=== PATIENT | female | born 1970 | race Caucasian/White ===

== ENCOUNTER 2019-08-07 15:29 | Outpatient (CLI) | payer OTHER, SELFPAY ==
--- NOTE | ~2019-08-07 | MM_ITS ---
EXAMINATION: MM screening chasity BI w hamzah HISTORY: Screening mammogram TECHNIQUE: Craniocaudal and mediolateral oblique 3-D tomosynthesis images were obtained and synthetic 2-D images were generated. CAD analysis was submitted and interpreted. COMPARISON: No prior mammogram is available for comparison at this institution. BREAST PARENCHYMAL COMPOSITION: The breasts are almost entirely fatty. FINDINGS: There is no evidence of suspicious mass, calcification, or architectural distortion to sugg est malignancy in either breast. There has been no suspicious interval change. IMPRESSION: 1. No mammographic evidence of malignancy. 2. Recommend routine screening mammography in one year. BI-RADS Category 1: Negative Reviewed, dictated and finalized at location A.
== END 2019-08-07 15:30 | disposition home or self-care (01) ==
LOC: ANHIMG 15:30
PROVIDERS: PCP Family Medicine; Visit Provider Family Medicine
DX: Z12.31 Encounter for screening mammogram for malignant neoplasm of breast (principal)
CPT/HCPCS: 77063; 77067

== ENCOUNTER 2020-04-08 07:58 | Emergency (ER) | payer OTHER, SELFPAY ==
--- NOTE | ~2020-04-08 | CT_ITS ---
EXAMINATION: CT lumbar spine wo con DATE: 04/08/2020 08:33 INDICATION: Low back pain with weakness to the lower extremities. TECHNIQUE: Computed tomography (CT) of the lumbar spine was performed without intravenous contrast. T he dose-length product was 1079.04 mGy-cm. Automated exposure control and iterative reconstruction te chnique were employed. COMPARISON: None FINDINGS: There is disc narrowing at L4-5 and L5-S1. There is grade 1 spondylolisthesis at L5-S1 seco ndary to bilateral spondylolysis. There is mild annular disc bulging at L4-5 and L5-S1. There is mild facet degenerative changes at these levels. No acute fracture or traumatic malalignment. There is mi ld central canal and bilateral neural foraminal narrowing at L4-5. No significant spinal stenosis at the remainder of the levels. There is fatty infiltration of the liver. Visualized abdominal contents are otherwise unremarkable. IMPRESSION: 1. Mild-moderate lumbar spondylosis with grade 1 spondylolisthesis at L5-S1 secondary to spondylolysi s. Reviewed, dictated and finalized at location A. RMATICS NURSE IMPRESSION: 1. Mild-moderate lumbar spondylosis with grade 1 spondylolisthesis at L5-S1 sec ondary to spondylolysis.
--- NOTE | 2020-04-08 08:02 | ED.BACK ---
HPI - Back Pain/Injury General Chief Complaint: Back Pain/Injury Stated Complaint: back pain Time Seen by Provider: 04/08/20 08:02 History of Present Illness HPI Narrative: 49 yo female w/ h/o herniated disc and chronic back pain presents to the ED for low back pain. She reports that she has had back pain since she was a teenager. About 10 years ago she had an MRI showing a herniated disc in the lumbar spine. She did not have any follow-up or treatment. She has had worsening of this back pain over the past few weeks. It is worse with prolonged standing. It radiates into the bilateral hips and thighs. She report associated leg weakness, although no difficulty with walking or perfoming normal activities. No bowel or bladder symptoms. No fever. Related Data Allergies Allergy/AdvReac Type Severity Reaction Status Date / Time Penicillins Allergy Unknown Unknown Verified 04/08/20 07:59 Sulfa (Sulfonamide Allergy Unknown Unknown Verified 04/08/20 07:59 Antibiotics) Review of Systems Review of Systems: All systems reviewed & are unremarkable except as noted in HPI and below Constitutional: Constitutional: Denies fever(s) and Reports weakness Cardiovascular: Cardiovascular: Denies chest pain Respiratory: Respiratory: Denies dyspnea Gastrointestinal: Gastrointestinal: Denies abdominal pain and Denies nausea Genitourinary: Genitourinary: Denies hematuria, Denies nocturia and Denies dysuria Neurologic: Denies dizziness, Denies numbness and Reports weakness PMFSH Past Medical History Medical History Body mass index [BMI] 29.0-29.9, adult (02/25/18) Closed displaced fracture of greater tuberosity of left humerus Incomplete tear of left rotator cuff Family History Family History Other Diabetes mellitus Family history of malignant neoplasm Hypertension Social History Social History Smoking status: Never smoker Alcohol intake: current Exam Const: General: healthy appearing, no acute distress and alert Nutritional Appearance: obese Orientation/consciousness: patient oriented x3 HENMT: Head: normal to inspection Neck: Neck: normal visual inspection and no lymphadenopathy Chest: Chest palpation & inspection: no tenderness Resp: Effort & Inspection: normal respiratory effort Auscultation: clear to auscultation bilaterally, no rales, no rhonchi and no wheezes Cardio: Jugular venous distension: no JVD Rate: regular rate Rhythm: regular rhythm Heart sounds: no murmurs GI: Inspection: non-distended GI Palp: Yes Soft to palpation and No Tenderness to palpation present (GI) Back/Spine/Pelvis: Thoracic/Lumbar Spine: thoracic and lumbar spine normal to inspection and paraspinal muscle tenderness bilaterally in the lower thoracic, in the upper lumbar, in the mid lumbar and in the lower lumbar Pelvis: buttock tenderness bilaterally Skin: General skin exam: normal color Neuro: General: patient oriented x3, moves all extremities, no focal motor deficits and CN's II-XI intact bilaterally Speech: normal speech Gait exam (Neuro): Normal gait present Extrem: General: normal to inspection and no edema Psych: Appearance: well kempt Affect: normal affect Course Vital Signs Vital signs: Vital Signs Temperature 36.9 C 04/08/20 08:06 Pulse Rate 99 04/08/20 08:06 Respiratory Rate 14 04/08/20 08:06 Blood Pressure 159/88 H 04/08/20 08:06 Pulse Oximetry 100 04/08/20 08:06 Temperature 36.9 C 04/08/20 08:06 Pulse Rate 70 04/08/20 10:09 Respiratory Rate 12 04/08/20 10:09 Blood Pressure 143/70 H 04/08/20 10:09 Pulse Oximetry 99 04/08/20 10:09 MDM - Back Pain/Injury Differential Diagnosis Differential diagnosis: Likely lumbar radiculopathy, sciatica and strain of lumbar region Medical Records Attestation: Ana hernandez
[2020-04-08 08:06] VITALS: BP 159/88; PULSE 99; RESP 14; TEMP 36.9; O2SAT 100
[2020-04-08] MEDS: KETOROLAC (*BKC) 60 MG/2 ML VIAL IM (08:22)
[2020-04-08] MEDS: diazePAM INJ (*CRX) 10 MG/2 ML SYRINGE 5 MG IM (08:22)
[2020-04-08 10:09] VITALS: BP 143/70; PULSE 70; RESP 12; O2SAT 99
== END 2020-04-08 10:10 | disposition home or self-care (01) ==
PROVIDERS: Emergency Provider Emergency Medicine; PCP Family Medicine
DX: M54.5 Low back pain (principal); M47.812 Spondylosis without myelopathy or radiculopathy, cervical region; M43.06 Spondylolysis, lumbar region
CPT/HCPCS: 72131; 96372; 99284; J1100; J1885; J3360

== ENCOUNTER → 2020-06-24 07:47 | Outpatient (CLI) | payer OTHER, SELFPAY ==
--- NOTE | ~2020-06-24 | MR_ITS ---
EXAMINATION: MR lumbar spine wo [facility] EXAM DATE: 06/24/2020 08:26 INDICATION: Spondylosis with radiculopathy, low back pain, spasms, bilateral leg and hip pain. Right leg is worse. TECHNIQUE: Multi-sequential, multiplanar MR images of the lumbar spine were obtained without contrast . Sagittal T1, T2, T2 fat saturation images. Axial T2 weighted images. Correlation is made to [facility] spine 04/08/2020. FINDINGS: There is chronic bilateral L5 spondylolysis with 6 mm anterolisthesis and moderate to sever e loss of this disc height. There is mild to moderate disc disease at L4-5 with 2 mm retrolisthesis. The vertebral bodies are otherwise aligned. Mild disc disease at L1-2 and lower thoracic levels. The conus medullaris terminates at the T12-L1 level and has normal signal intensity and morphology. Ther e are no suspicious marrow signal abnormalities. Level by level evaluation: T12-L1: There is a mild diffuse disc bulge. Facet arthropathy: None. Neural foraminal stenosis: No stenosis. Central canal stenosis: No stenosis. L1-L2: There is a mild diffuse disc bulge. Facet arthropathy: Mild. Neural foraminal stenosis: No stenosis. Central canal stenosis: No stenosis. L2-L3: Disc does not extend beyond the endplate margin. Facet arthropathy: Mild. Neural foraminal stenosis: No stenosis. Central canal stenosis: No stenosis. L3-L4: Disc does not extend beyond the endplate margin. Facet arthropathy: Mild. Neural foraminal stenosis: No stenosis. Central canal stenosis: No stenosis. L4-L5: There is a mild diffuse disc bulge. Facet arthropathy: Mild. Neural foraminal stenosis: Mild to moderate right, mild left. Central canal stenosis: No stenosis. L5-S1: There is a mild to moderate diffuse disc bulge. Facet arthropathy: Mild. Neural foraminal stenosis: Moderate left, mild to moderate right. Central canal stenosis: No stenosis. No appreciable interval change accounting for differences in technique. IMPRESSION: 1. Chronic L5 bilateral spondylolysis, 6 mm anterolisthesis L5 on S1. 2. L5-S1 moderate to severe disc disease and moderate left neural foraminal stenosis. 3. Less spondylosis other levels. Reviewed, dictated and finalized at location A. IMPRESSION: 1. Chronic L5 bilateral spondylolysis, 6 mm anterolisthesis L5 on S1. 2. L5-S1 moderate to severe disc disease and moderate left neural foraminal st enosis. 3. Less spondylosis other levels.
== END ==
PROVIDERS: PCP Family Medicine; Visit Provider Nurse Practitioner Family
DX: M47.26 Other spondylosis with radiculopathy, lumbar region (principal); M51.37 Other intervertebral disc degeneration, lumbosacral region
CPT/HCPCS: 72148

== ENCOUNTER → 2020-11-12 03:19 | Outpatient (CLI) | payer OTHER, SELFPAY ==
[2020-11-13 03:41] LABS: SARS-CoV-2 RNA PCR Negative
== END ==
PROVIDERS: PCP Family Medicine; Visit Provider Family Medicine
DX: R68.89 Other general symptoms and signs (principal); Z20.822 Contact with and (suspected) exposure to COVID-19
CPT/HCPCS: C9803; U0003; U0005

== ENCOUNTER 2021-04-28 08:44 | Emergency (ER) | payer OTHER, SELFPAY ==
[2021-04-28 08:50] VITALS: BP 138/67; PULSE 84; RESP 18; TEMP 36.8; O2SAT 100
--- NOTE | 2021-04-28 08:52 | ED.URI ---
HPI - URI/Sore Throat General Chief Complaint: Upper Respiratory Infection Stated Complaint: fatigue weak cough sore throat Time Seen by Provider: 04/28/21 08:52 Source: patient and RN notes reviewed History of Present Illness HPI Narrative: Patient is a 50-year-old female who presents the urgent care with complaints of fatigue, cough, sore throat and right ear pain. Patient states that her symptoms started on Sunday after she had an exposure to Covid at work last week. Patient states that she tested negative with an at home rapid test on Sunday. States that her is also now symptomatic. Patient has not been vaccinated. States that she has been taking Sudafed, DayQuil and NyQuil. Denies of any recent fevers. Denies any nausea or vomiting. Denies of shortness of breath or chest pain. No other acute complaints. No acute distress noted. Patient aware of the plan of care. Some parts of this dictation were generated by voice recognition software and may contain typographical and/or grammatical inaccuracies. Related Data Home Medications Medication Instructions Recorded Confirmed No Home Medications 04/28/21 04/28/21 Allergies Allergy/AdvReac Type Severity Reaction Status Date / Time Penicillins Allergy Unknown Unknown Verified 04/28/21 09:01 Sulfa (Sulfonamide Allergy Unknown Unknown Verified 04/28/21 09:01 Antibiotics) Review of Systems Review of Systems: CONSTITUTIONAL: Denies fever, chills, or sweats. Reports a fatigue EYES: Denies visual changes, redness, or discharge. ENT: Reports of congestion, sore throat, right otalgia CARDIOVASCULAR: Denies chest pain, palpitations, or edema. RESPIRATORY: Denies cough or dyspnea. GASTROINTESTINAL: Denies abdominal pain, nausea, vomiting, or diarrhea. GENITOURINARY: Denies dysuria or hematuria. SKIN: Denies rash or itching. MUSCULOSKELETAL: Denies back pain, joint pain. reports of body aches NEUROLOGIC: Denies headache, numbness, or weakness. All other systems reviewed are negative, except as documented in HPI. [facility] Past Medical History Medical History Body mass index [BMI] 29.0-29.9, adult (02/25/18) Closed displaced fracture of greater tuberosity of left humerus Incomplete tear of left rotator cuff Family History Family History Other Diabetes mellitus Family history of malignant neoplasm Hypertension Social History Social History Smoking status: Never smoker Alcohol intake: current Comments At the time of my signature, I reviewed and agree with the nursing past medical, surgical, social, and family history. There is no relevant family history pertinent to the patient complaint. Exam Narrative: GENERAL: This is a well-nourished, well-developed patient. Appears fatigued HEAD: normocephalic, atraumatic. EYES: PERRL. Sclera clear/white. Vision is grossly intact. EARS: External ears normal, auditory canals clear and without drainage, mild to moderate fluid noted behind bilateral TMs without otitis. TMs normal without perforation. Hearing grossly intact. NOSE: External nose normal with no obvious nasal discharge. Bilateral erythemic nares with clear yellow rhinorrhea THROAT: Mucous membranes moist. Moderate erythema noted posterior pharynx with moderate postnasal drainage NECK: Neck supple CARDIOVASCULAR: Regular rate and rhythm without murmurs, gallops, or rubs. RESPIRATORY: Clear to auscultation. Breath sounds equal bilaterally. No wheezes, rales, or rhonchi. SKIN: warm, intact with no suspicious lesions or rash, good texture and turgor. NEURO: awake, alert, and oriented to person, place and time. There were no obvious focal neurologic abnormalities. EXTREMITIES: No clubbing, cyanosis, or edema. Course Course Level of Care: Express Care Visit Vital Signs Vital signs: Lisa
== END 2021-04-28 09:20 | disposition home or self-care (01) ==
PROVIDERS: Emergency Provider Nurse Practitioner Family
DX: Z20.822 Contact with and (suspected) exposure to COVID-19 (principal)
CPT/HCPCS: 99211; G0463

== ENCOUNTER 2021-07-04 08:27 | Emergency (ER) | payer OTHER, SELFPAY ==
[2021-07-04 08:40] VITALS: BP 122/67; PULSE 87; RESP 16; TEMP 37.2; O2SAT 99
--- NOTE | 2021-07-04 09:13 | ED.URI ---
HPI - URI/Sore Throat General Chief Complaint: Upper Respiratory Infection Stated Complaint: Fever/Cough Time Seen by Provider: 07/04/21 09:14 Source: patient and RN notes reviewed Mode of arrival: ambulatory Limitations: no limitations History of Present Illness HPI Narrative: 51-year-old female presents with concern for 2-week history of sinus pain, pressure, nasal drainage. She reports fever, chills, sweats. She reports she had a cough that has been improving, however still present. Reports she used an inhaler that helped her cough. She denies any current shortness of breath. She reports she has been taking [id number] medications with little relief. MD elicited complaint: nasal congestion and sinus pain Related Data Allergies Allergy/AdvReac Type Severity Reaction Status Date / Time Penicillins Allergy Unknown Unknown Verified 07/04/21 09:05 Sulfa (Sulfonamide Allergy Unknown Unknown Verified 07/04/21 09:05 Antibiotics) Review of Systems Review of Systems: CONSTITUTIONAL: Reports malaise, chills, sweats, fever. EYES: Denies visual changes, redness, or discharge. ENT: Reports rhinorrhea, congestion, sinus pain. Denies otalgia and sore throat. CARDIOVASCULAR: Denies chest pain, palpitations, or edema. RESPIRATORY: Reports cough. Denies dyspnea. GASTROINTESTINAL: Denies abdominal pain, nausea, vomiting, diarrhea SKIN: Denies rash or itching. MUSCULOSKELETAL: Denies myalgia. NEUROLOGIC: Reports headache. All systems reviewed & are unremarkable except as noted in HPI and below PMFSH Past Medical History Medical History Body mass index [BMI] 29.0-29.9, adult (02/25/18) Closed displaced fracture of greater tuberosity of left humerus Incomplete tear of left rotator cuff Family History Family History Other Diabetes mellitus Family history of malignant neoplasm Hypertension Social History Social History Smoking status: Never smoker Alcohol intake: current Comments At time of signature, agree with nursing past medical, surgical, social and family history. There is no relevant family history pertinent to the presenting complaint Exam Narrative: GENERAL: Well-appearing, well-nourished, and in no acute distress. HEAD: Normocephalic EYES: PERRLA, conjunctivae clear ENT: Nares clear, turbinates edematous and erythematous, sinus tenderness. Mucous membranes moist. TM pearly barbosa with dull light reflex bilaterally; no tragal tenderness. Oropharynx not erythematous without lesions. Tonsils not enlarged and without exudate, no drooling, no hoarseness, no trismus, uvula midline. NECK: Supple. No lymphadenopathy CHEST: Clear to auscultation, breath sounds equal. No wheezing, rhonchi, rales, or stridor. No respiratory distress, speaks in full sentences. HEART: Regular rate and rhythm. No murmur heard. SKIN: Warm, dry, no rash. NEURO: Alert and oriented x3. PSYCH: Normal mood and affect Course Course Emergency Course: Patient is aware of diagnosis, understands and agrees to treatment plan. Anticipatory guidance given. Patient agrees to follow-up as directed and is aware of reasons to seek care at the emergency department. Portions of this record may have been created with voice recognition software Level of Care: Express Care Visit Vital Signs Vital signs: Vital Signs Temperature 98.9 F 07/04/21 08:40 Pulse Rate 87 07/04/21 08:40 Respiratory Rate 16 07/04/21 08:40 Blood Pressure 122/67 07/04/21 08:40 Pulse Oximetry 99 07/04/21 08:40 Temperature 98.9 F 07/04/21 08:40 Pulse Rate 87 07/04/21 08:40 Respiratory Rate 16 07/04/21 08:40 Blood Pressure 122/67 07/04/21 08:40 Pulse Oximetry 99 07/04/21 08:40 Reviewed. MDM - URI/Sore Throat MDM Narrative Medical decision making narrative: Differential diagnos
== END 2021-07-04 09:28 | disposition home or self-care (01) ==
PROVIDERS: Emergency Provider Nurse Practitioner
DX: J01.90 Acute sinusitis, unspecified (principal); Z20.822 Contact with and (suspected) exposure to COVID-19
CPT/HCPCS: 87426; 87804; 99213; C9803; G0463

== ENCOUNTER → 2021-09-09 13:51 | Outpatient (CLI) | payer OTHER, SELFPAY ==
--- NOTE | ~2021-09-09 | CT_ITS ---
EXAMINATION: CT sinus wo con DATE: 09/09/2021 14:06 INDICATION: Atypical facial pain TECHNIQUE: Computed tomography (CT) of the paranasal sinuses was performed without intravenous contra st. The dose-length product was 274.70 mGy-cm. Automated exposure control and iterative reconstructio n technique were employed. COMPARISON: No prior studies for comparison. FINDINGS: There is near complete opacification of the left maxillary sinus and to a lesser degree muc osal thickening of the left ethmoid and frontal sinuses. There is occlusion of the left ostiomeatal u nit. There is rightward nasal septal deviation. IMPRESSION: 1. Moderate sinusitis, most severe in the left maxillary and ethmoid sinuses. Reviewed, dictated and finalized at location B.
== END ==
PROVIDERS: PCP Internal Medicine; Visit Provider Nurse Practitioner
DX: G50.1 Atypical facial pain (principal); J32.9 Chronic sinusitis, unspecified
CPT/HCPCS: 70486

== ENCOUNTER 2021-12-02 00:15 | Day surgery (SDC) | payer OTHER, SELFPAY ==
[2021-11-24 12:32] VITALS: BMI 32.7
[2021-12-02 07:19] VITALS: BP 129/80; PULSE 94; RESP 18; TEMP 36.1; O2SAT 99; BMI 33.1
[2021-12-02] MEDS: LACTATED RINGERS 1,000 ML 150 ML IV CONT (07:37)
--- NOTE | 2021-12-02 07:48 | P.PNAN_ITS ---
Anes - Initial Pre Proc Eval Procedure: Operation Date: 12/02/21 08:30 Proposed Procedures p Screening Colonoscopy - J Luis Alejandro MD Date/Time: 12/02/21 07:48 Surgeon: J Luis Alejandro MD Pre Op Diagnosis: neoplasm screening Patient Data Age: 51 Gender: F Height: 1.63 m Weight: 87.6 kg Last Vital Signs Temp 97 F L 12/02/21 07:19 Pulse 94 12/02/21 07:19 Resp 18 12/02/21 07:19 BP 129/80 12/02/21 07:19 Pulse Ox 99 12/02/21 07:19 O2 Del Method Room Air 12/02/21 07:19 Allergies Allergy/AdvReac Type Severity Reaction Status Date / Time Penicillins Allergy Unknown Unknown Verified 12/02/21 07:18 Sulfa (Sulfonamide Allergy Unknown Unknown Verified 12/02/21 07:18 Antibiotics) Home Medications Medication Instructions Recorded Confirmed Type multivitamin with minerals 1 tablet PO DAILY 11/24/21 12/01/21 History Patient hx anesthesia problems: none Family hx anesthesia problems: none Results Review: All pre-operative results and documents have been reviewed as part of the pre- operative evaluation. [facility] Past Medical History Medical History Body mass index [BMI] 29.0-29.9, adult (02/25/18) Closed displaced fracture of greater tuberosity of left humerus Incomplete tear of left rotator cuff Family History Family History Other Diabetes mellitus Family history of malignant neoplasm Hypertension Social History Social History (Updated 12/01/21 @ 10:51 by CRISTHIAN Nunes) Smoking status: Current every day smoker Alcohol intake: current Drinks per week: 14 Alcohol use details: 2 beers daily Substance use: never Substance use type: does not use Living arrangements: with family Spiritual care concerns: No Anes - Eval Final PreProcedure Day of Procedure 12/02/21 07:48 Patient weight: obese Heart: regular rate and rhythm Lungs: clear to auscultation Airway: Mallampati scale class II Neurological: alert and oriented Last oral intake: >/= 8 hours ASA classification: II Emergent: no Anesthetic plan: proceed Anesthesia type and monitoring: general GIVS and standard monitoring Results Review: All pre-operative results and documents have been reviewed as part of the pre- operative evaluation. Informed Consent: The patient's anesthetic plan and its attendant risks and benefits were discussed with the patient/family/POA. Questions were solicited and answers provided to the satisfaction of the patient/family/POA.
--- NOTE | 2021-12-02 07:51 | PM.HPGS ---
History of Present Illness History of Present Illness Consent: Risks, benefits, and alternatives have been discussed and questions answered. Patient agrees to proceed with procedure. Chief complaint: neoplasm screening Narrative: Beatrice Raman is a 51 year old female here for first screening colonoscopy Review of Systems Constitutional: Constitutional: Denies headache(s) and Denies weakness Eyes: Eyes: Denies blurry vision ENT: Reports Normal hearing present, Denies headache(s) and Denies neck pain Cardiovascular: Cardiovascular: Denies chest pain and Denies dyspnea Respiratory: Respiratory: Denies dyspnea Gastrointestinal: Gastrointestinal: Reports no additional gastrointestinal complaints Genitourinary: Genitourinary: Denies dysuria Musculoskeletal: Musculoskeletal: Denies neck pain Integumentary/Breasts: Skin/Breast: Denies dry skin Neurologic: Reports Normal hearing present, Denies headache(s) and Denies weakness Psychiatric: Psychiatric: Denies anxiety Endocrine: Endocrine: Denies change in body appearance Hematologic/Lymphatic: Hematologic/Lymphatic: Denies easy bleeding Allergic/Immunologic: Allergic/Immunologic: Denies urticaria PMF Past Medical History Medical History (Updated 12/02/21 @ 07:52 by J Luis Alejandro MD) Body mass index [BMI] 29.0-29.9, adult (02/25/18) Closed displaced fracture of greater tuberosity of left humerus Colon cancer screening Incomplete tear of left rotator cuff Family History Family History Other Diabetes mellitus Family history of malignant neoplasm Hypertension Social History Social History (Updated 12/01/21 @ 10:51 by CRISTHIAN Nunes) Smoking status: Current every day smoker Alcohol intake: current Drinks per week: 14 Alcohol use details: 2 beers daily Substance use: never Substance use type: does not use Living arrangements: with family Spiritual care concerns: No Meds Home Medications and Allergies Home Medications Medication Instructions Recorded Confirmed Type multivitamin with minerals 1 tablet PO DAILY 11/24/21 12/01/21 History Allergies Allergy/AdvReac Type Severity Reaction Status Date / Time Penicillins Allergy Unknown Unknown Verified 12/02/21 07:18 Sulfa (Sulfonamide Allergy Unknown Unknown Verified 12/02/21 07:18 Antibiotics) Vital Signs Vital Signs - 24 hr 12/02/21 07:19 Temperature 97 F L Pulse Rate 94 Respiratory Rate 18 Blood Pressure 129/80 Pulse Oximetry 99 Oxygen Delivery Room Air Exam Const: General: comfortable and no acute distress HENMT: General nose exam: Normal nares present Eyes: General: appearance normal, both eyes and all related structures Neck: Neck: no JVD Resp: Auscultation: clear to auscultation bilaterally Cardio: Rate: regular rate Rhythm: regular rhythm GI: Inspection: non-distended GI Palp: Yes Soft to palpation Skin: General skin exam: normal color Neuro: General: gait normal Speech: normal speech Extrem: General: normal to inspection Psych: Mental Status: mental status grossly normal Assessment and Plan Assessment and plan (1) Colon cancer screening: Code(s): Z12.11 - Encounter for screening for malignant neoplasm of colon Status: Acute Assessment and Plan: colonoscopy
[2021-12-02 08:12] VITALS: BP 108/60; PULSE 88; RESP 16; O2SAT 97
[2021-12-02 08:22] VITALS: BP 95/65; PULSE 86; RESP 16; O2SAT 98
[2021-12-02 08:32] VITALS: BP 101/68; PULSE 86; RESP 17; O2SAT 98
== END 2021-12-02 08:41 | disposition home or self-care (01) ==
PROVIDERS: PCP Internal Medicine; Visit Provider Internal Medicine Gastroenterology
PROC: 0DJD8ZZ Inspection of Lower Intestinal Tract, Via Natural or Artificial Opening Endoscopic (ICD-10-PCS; CPT 45378; principal; 2021-12-02 08:30)
DX: Z12.11 Encounter for screening for malignant neoplasm of colon (principal); D12.3 Benign neoplasm of transverse colon; K57.30 Diverticulosis of large intestine without perforation or abscess without bleeding; K64.8 Other hemorrhoids; F17.210 Nicotine dependence, cigarettes, uncomplicated; E66.9 Obesity, unspecified; Z68.33 Body mass index [BMI] 33.0-33.9, adult
CPT/HCPCS: 45380; 88305; J2704; J7120

== ENCOUNTER 2021-12-12 09:59 | Emergency (ER) | payer OTHER, SELFPAY ==
--- NOTE | ~2021-12-12 | CT_ITS ---
EXAMINATION: CT brain wo con DATE: 12/12/2021 11:13 INDICATION: Seizure. TECHNIQUE: Computed tomography (CT) of the head was performed without intravenous contrast. The mA wa s adjusted according to patient size. Iterative reconstruction technique was employed. The dose-lengt h product was 605.33 mGy-cm. COMPARISON: None FINDINGS: There are scattered areas of low attenuation in the cerebral white matter, which is within normal limits for the patient's age. There is no intracranial hemorrhage, acute infarction, or abnor mal intracranial mass lesion. The ventricles are normal in size. The paranasal sinuses are clear. The orbits are normal. The mastoid air cells are normal. IMPRESSION: 1. Normal aging brain. Reviewed, dictated and finalized at location A. IMPRESSION: 1. Normal aging brain.
[2021-12-12 10:02] VITALS: BP 151/77; PULSE 98; RESP 15; TEMP 36.1; O2SAT 100
--- NOTE | 2021-12-12 10:26 | ED.SEIZURE ---
HPI - Seizure General Chief Complaint: Seizure Stated Complaint: possible seizure? Time Seen by Provider: 12/12/21 10:26 Source: patient Mode of arrival: ambulatory Limitations: no limitations History of Present Illness HPI Narrative: The patient is a 51-year-old female previously healthy female presenting for evaluation of potential seizure activity. Patient states that she was in between being asleep and being awake when she began to be thrashing in nature. She states that this point she may have been awake but is not entirely sure. Patient states that she felt that her face was moving and she was not in control no movements. She states that she felt that her mouth was foaming. Patient was awake and knew that she was at home. She denied body numbness or weakness. She denies urinary incontinence. No tongue biting or lacerations. No headache pain or vision changes. Patient is not able to estimate how long this occurred 4. She has no history of seizure has never been on seizure medications. She denies current symptoms. She denies focal weakness or numbness. She denies head trauma, loss of conscious, recent fall or injury. She denies recent illnesses. She denies any new medications. Related Data Home Medications Medication Instructions Recorded Confirmed multivitamin with minerals 1 tablet PO DAILY 11/24/21 12/01/21 Allergies Allergy/AdvReac Type Severity Reaction Status Date / Time Penicillins Allergy Unknown Unknown Verified 12/12/21 11:43 Sulfa (Sulfonamide Allergy Unknown Unknown Verified 12/12/21 11:43 Antibiotics) Review of Systems Review of Systems: CONSTITUTIONAL: Denies fever, chills, or sweats. EYES: Denies visual changes, redness, or discharge. ENT: Denies rhinorrhea, congestion, sore throat, or otalgia. CARDIOVASCULAR: Denies chest pain, palpitations, or edema. RESPIRATORY: Denies cough or dyspnea. GASTROINTESTINAL: Denies abdominal pain, nausea, vomiting, or diarrhea. GENITOURINARY: Denies dysuria or hematuria. SKIN: Denies rash or itching. MUSCULOSKELETAL: Denies back pain, joint pain, or myalgia. NEUROLOGIC: Denies headache, numbness, or weakness. PSYCHIATRIC: Patient reports mild anxiety and depression PMFSH Past Medical History Medical History Body mass index [BMI] 29.0-29.9, adult (02/25/18) Closed displaced fracture of greater tuberosity of left humerus Colon cancer screening Incomplete tear of left rotator cuff Family History Family History Other Diabetes mellitus Family history of malignant neoplasm Hypertension Social History Social History Smoking status: Current every day smoker Alcohol intake: current Drinks per week: 14 Alcohol use details: 2 beers daily Substance use: never Substance use type: does not use Spiritual care concerns: No Exam Narrative: GENERAL: Awake, alert, conversant HEAD: Normocephalic, atraumatic. EYES: PERRLA and EOMI. ENT: Nares clear, no rhinorrhea or epistaxis. Mucous membranes moist. NECK: Supple. CHEST: No respiratory distress, breathing even and non labored HEART: Regular rate, sinus rhythm ABDOMEN:Non distended, non tender EXTREMITIES: Normal range of motion. No edema. SKIN: Warm, dry, no rash. NEURO:No focal deficits. Alert and oriented x3. Finger to nose intact bilaterally. EOMs intact without nystagmus. No facial droop/asymmetry noted bilaterally. Grimace intact. Intact sensation in face. Hearing intact bilaterally. Shoulder shrug intact. Strength 5/5 bilateral upper extremities. Strength 5/5 bilateral lower extremities. Reflexes 2+ patellar. Heel to condon intact bilaterally. Ambulatory exam deferred. Course Vital Signs Vital signs: Vital Signs Temperature 36.1 C L 12/12/21 10:02 Pulse Rate 98 12/12/21 10:02 Respiratory Rate 15 12/12/21 10:02 Blo
--- NOTE | 2021-12-12 10:59 | ECG_ITS ---
Measurements Intervals [place] Rate: 74 P: 12 NV: 167 QRS: -17 QRSD: 85 T: 17 QT: 379 QTc: 421 Interpretive Statements SINUS RHYTHM DELAYED PRECORDIAL R/S TRANSITION BORDERLINE ECG NO PREVIOUS ECG AVAILABLE FOR COMPARISON Electronically Signed On 12-12-2021 12:41:39 CDT by Abiel Handley D.O.
[2021-12-12 12:16] VITALS: O2SAT 98
[2021-12-12 12:17] VITALS: PULSE 87
[2021-12-12 12:41] LABS: Appearance Urine Clear (Clear); Bilirubin Urine Negative (Negative); Blood Urine Negative (Negative); Color Urine Yellow (Yellow); Glucose Urine UA Negative (Negative); Ketones Urine Negative (Negative); Leukocyte Esterase Ur Negative LEU/UL (Negative); Nitrate Urine Negative (Negative); Protein Urine Negative (Negative); Specific Grav Ur 1.015 (1.001-1.035); Urobilinogen Urine 0.2 mg/dL (<2.0)
[2021-12-12 12:42] LABS: Basophils Absolute Auto 0.1 K/mm3 (0.0-0.1); Basophils Percent Auto 0.7 % (0.2-1.2); Eosinophils Absolute Auto 0.1 K/mm3 (0-0.3); Eosinophils Percent Auto 1.4 % (0-4.4); Hematocrit 44.4 % (37.0-47.0); Hemoglobin 14.9 g/dL (12.0-15.0); Immature Granulocyte Absolute 0.07 K/mm3 (0.00-0.031); Immature Granulocyte Percent A 0.7 % (0-0.5); Lymphocytes Absolute Auto 2.91 K/mm3 (0.9-3.2); Lymphocytes Percent Auto 29.9 % (18.3-44.2); Mean Corpuscular HGB Conc 33.6 g/dl (32-36); Mean Corpuscular Hemoglobin 32.7 pg (26-34); Mean Corpuscular Volume 97.4 fl (80-100); Mean Platelet Volume 10.6 fl (7.4-10.4); Monocytes Absolute Auto 0.6 K/mm3 (0.1-0.6); Monocytes Percent Auto 5.7 % (2.6-8.5); Neutrophils Percent Auto 61.6 % (45.5-73.1); Platelet Count Result 219 k/mm3 (150-375); Red Blood Count 4.56 M/mm3 (4.2-5.4); Red Cell Distribution Width 13.3 % (11.5-14.5); White Blood Count 9.7 K/mm3 (4.5-10.0)
[2021-12-12 12:51] LABS: Anion Gap 13 mmol/L (8-16); Blood Urea Nitrogen 11 mg/dL (7-17); Calcium 8.7 mg/dL (8.4-10.2); Carbon Dioxide 26 mmol/L (22-30); Chloride 104 mmol/L (98-107); Estimated CRCL calculation 77 ml/min; Estimated Glomerular Filt Rate > 60; Glucose 120 mg/dL (65-110); Potassium 4.1 mmol/L (3.4-5.0); Sodium 143 mmol/L (137-145)
[2021-12-12 12:57] LABS: Add Urine Microscopic? NO
[2021-12-12 13:15] LABS: Procalcitonin 0.1 ng/mL
[2021-12-12 14:06] VITALS: BP 149/84; PULSE 77; RESP 18; O2SAT 99
== END 2021-12-12 14:07 | disposition home or self-care (01) ==
PROVIDERS: Emergency Provider Emergency Medicine; PCP Family Medicine
DX: R56.9 Unspecified convulsions (principal); F17.210 Nicotine dependence, cigarettes, uncomplicated
CPT/HCPCS: 36415; 70450; 80048; 81003; 84145; 85025; 93005; 99284

== ENCOUNTER 2021-12-15 12:25 | Outpatient (CLI) | payer OTHER, SELFPAY ==
--- NOTE | 2021-12-16 14:49 | P.NEURO_ITS ---
Neurology EEG Report General Information Date of Study: 12/15/21 TEST eeg DIAGNOSIS unspecified convulsions CONDITION OF RECORDING awake drowsy and sleep EEG NUMBER [id number] CLINICAL HISTORY patient reports she had an episode that woke her out of sleep where she felt like a bomb going off in her head, left side of face was twitching shaking, little foaming at the mouth and then was very tired afterwards there is no history of seizures in the past EEG DESCRIPTION basic resting occipital frequency consists of large amount of well-organized medium voltage 8 to 10 hertz per 2nd alpha posteriorly. Low-voltage beta activity seen diffusely during drowsiness with waxing and waning posterior alpha rhythm. Bilateral symmetrical sleep activity seen during sleep. Hyperventilation not done. Photic stimulation produces normal drive. Non pa roxysmal. Nonfocal. Nonlateralizing. IMPRESSION Normal record
== END 2021-12-15 12:26 | disposition home or self-care (01) ==
PROVIDERS: PCP Family Medicine; Visit Provider Nurse Practitioner Adult Health
DX: R56.9 Unspecified convulsions (principal)
CPT/HCPCS: 95816

== ENCOUNTER 2023-08-23 07:37 | Outpatient (CLI) | payer OTHER, SELFPAY ==
--- NOTE | ~2023-08-23 | MM_ITS ---
EXAMINATION: MM screening chasity BI w hamzah HISTORY: Screening TECHNIQUE: Craniocaudal and mediolateral oblique 3-D tomosynthesis images were obtained and synthetic 2-D images were generated. CAD analysis was submitted and interpreted. COMPARISON: 08/07/2019 BREAST PARENCHYMAL COMPOSITION: The breasts are almost entirely fatty. FINDINGS: There is no evidence of suspicious mass, calcification, or architectural distortion to sugg est malignancy in either breast. There has been no suspicious interval change. IMPRESSION: 1. No mammographic evidence of malignancy. 2. Recommend routine screening mammography in one year. BI-RADS Category 1: Negative Reviewed, dictated and finalized at location A.
== END 2023-08-23 07:38 | disposition home or self-care (01) ==
PROVIDERS: PCP Family Medicine; Visit Provider Family Medicine
DX: Z12.31 Encounter for screening mammogram for malignant neoplasm of breast (principal)
CPT/HCPCS: 77063; 77067

== ENCOUNTER 2024-03-13 08:11 | Emergency (ER) | payer OTHER, SELFPAY ==
--- NOTE | ~2024-03-13 | XR_ITS ---
AP view of the pelvis and AP and lateral views of the right hip Clinical history: Pain Findings: No acute fracture or dislocation is seen. Osseous alignment is anatomic. There is mild dege nerative spurring at the superolateral acetabular margins bilaterally. Soft tissues are unremarkable. Impression: Minimal degenerative changes, as above. Reviewed, dictated and finalized at location M. CAL COST CONSULTANT Impression: Minimal degenerative changes, as above.
[2024-03-13 08:16] VITALS: BP 151/93; PULSE 88; RESP 16; TEMP 36.5; O2SAT 100
[2024-03-13 08:30] VITALS: BP 130/76; PULSE 78; RESP 16; TEMP 36.6; O2SAT 100
--- NOTE | 2024-03-13 09:29 | ED.LOWEXIN ---
HPI - Extremity Injury (Lower) General Chief Complaint: Extremity Injury, Lower Stated Complaint: R hip pain Time Seen by Provider: 03/13/24 08:15 History of Present Illness HPI Narrative: The patient has history of sciatica, and several weeks ago re-injured her right hip when she lost her balance while is on a stool, since then has steadily started having more pain to her right hip/ groin, worse with certain movements. No focal numbness or weakness. Has tried multiple different pain medications without much improvement Related Data Home Medications ?Medication ?Instructions ?Recorded ?Confirmed ?Last Taken ?Type multivitamin with minerals 1 tablet PO DAILY 11/24/21 12/01/21 Unknown History Allergies Allergy/AdvReac Type Severity Reaction Status Date / Time Penicillins Allergy Unknown Unknown Verified 03/13/24 08:27 Sulfa (Sulfonamide Allergy Unknown Unknown Verified 03/13/24 08:27 Antibiotics) Review of Systems Review of Systems: All systems reviewed & are unremarkable except as noted in HPI and below PMFSH Past Medical History Medical History Body mass index [BMI] 29.0-29.9, adult (02/25/18) Closed displaced fracture of greater tuberosity of left humerus Colon cancer screening Incomplete tear of left rotator cuff Family History Family History Other Diabetes mellitus Family history of malignant neoplasm Hypertension Social History Social History Smoking status: Current every day smoker Alcohol intake: current Drinks per week: 14 Alcohol use details: 2 beers daily Substance use: never Substance use type: does not use Living arrangements: with family Spiritual care concerns: No Exam Narrative: EXAMINATION OF ORGAN SYSTEMS/BODY AREAS: Constitutional: Vital signs per nursing GENERAL:[No acute distress, non-toxic appearing.] HEAD: Normal with no signs of head trauma. EYES: EOMI, conjunctiva normal ENT: Hearing grossly intact LUNGS: Nonlabored breathing. HEART: [Regular rate and rhythm], normal/good perfusion to RLE ABD: [Soft], [nontender to palpation] EXT: Normal range of motion, slight tenderness to the right hip/going SKIN: [No rashes or lesions.] NEURO: [Alert and oriented x 3. No gross focal sensory or strength deficits.] PSYCH: Normal affect Course Vital Signs Vital signs: Vital Signs Temperature 97.7 F 03/13/24 08:16 Pulse Rate 88 03/13/24 08:16 Respiratory Rate 16 03/13/24 08:16 Blood Pressure 151/93 H 03/13/24 08:16 Pulse Oximetry 100 03/13/24 08:16 Oxygen Delivery Room Air 03/13/24 08:16 Temperature 97.7 F 03/13/24 08:16 Pulse Rate 88 03/13/24 08:16 Respiratory Rate 16 03/13/24 08:16 Blood Pressure 151/93 H 03/13/24 08:16 Pulse Oximetry 100 03/13/24 08:16 Oxygen Delivery Room Air 03/13/24 08:16 MDM - Extremity Injury (Lower) MDM Narrative Medical decision making narrative: patient presenting with right groin pain, she is still able to ambulate, no midline tenderness, no deformity, no abdominal tenderness, no neurovascular deficits. X-ray without any acute fracture or dislocation on my independent interpretation. Discussed with patient, she would prefer not to take any pills including steroids, agreeable to trying lidocaine patch, will try muscle relaxants also, and I have given her follow-up to Orthopedics as it has been several weeks she may benefit from an MRI. Return precautions are discussed. Discharge Plan Discharge Clinical Impression: Acute pain of right hip Patient Disposition: Home, Self-Care Condition: Stable Instructions: Hip Sprain (ED) Additional Instructions: Please follow up with the orthopedic surgeon; you can always return for any further issues. Patient Language: Liberian Prescriptions: New methocarbamol 750 mg tablet 750 mg PO TID PRN (Reason: muscle spasm) Qty: 30 0RF lidocaine 5 % adhesive patch,medicated 1 patch topical DAILY Qty: 15 0RF Rx Instructions: leave on most painful area for up to 12 hrs No Action All Purpose Multivitamin-Min Tablet 1 tablet PO DAILY Follow-up/Referrals: Michelet Ortega MD [Physician] - 2 Days Bryant Ndiaye MD [Primary Care Provider] -
[2024-03-13] MEDS: LIDOCAINE 5% PATCH 1 PATCH TRANSDERM (09:47)
[2024-03-13] MEDS: KETOROLAC 30 MG/ML VIAL (*BKC) IM (09:47)
[2024-03-13 10:34] VITALS: BP 128/70; PULSE 74; RESP 16; TEMP 36.4; O2SAT 100
== END 2024-03-13 10:36 | disposition home or self-care (01) ==
PROVIDERS: Emergency Provider Emergency Medicine; PCP Family Medicine
DX: M25.551 Pain in right hip (principal); Z87.891 Personal history of nicotine dependence
CPT/HCPCS: 73502; 96372; 99283; A9270; J1885

== ENCOUNTER 2024-04-12 09:23 | Outpatient (CLI) | payer OTHER, SELFPAY ==
--- NOTE | ~2024-04-12 | MR_ITS ---
Procedure: MR hip RT wo con Ordering provider: Mitchell Fontenot, COURT INTERPRETER History: . right hip pain/spasms/popping w/ pain down right leg x . Comparison: Technique: MRI Findings: BONES: Fracture of the right femoral neck is seen with no significant displacement. Edema is seen in the bone marrow in the area. No other fractures seen. JOINT SPACES: Bilateral severe narrowing of the right and left hip joints. Minimal effusion seen on t he right hip joint. SOFT TISSUES: Severe edema is seen in the surrounding muscles around the right femoral neck and proxi mal thigh. IMPRESSION: Fracture of the right femoral neck. Edema in the surrounding muscles with minimal joint effusion. Bilateral severe osteoarthritic changes. The hospital cotton gin yard supervisor electrical electronics engineer was notified with the result of the patient to be called. Reviewed, dictated and finalized at location A. PLANNING CONSULTANT SALESPERSON
== END 2024-04-12 09:24 | disposition home or self-care (01) ==
PROVIDERS: PCP Orthopaedic Surgery; Visit Provider Registered Nurse
DX: S72.001A Fracture of unspecified part of neck of right femur, initial encounter for closed fracture (principal); X58.XXXA Exposure to other specified factors, initial encounter; R60.0 Localized edema; M16.0 Bilateral primary osteoarthritis of hip
CPT/HCPCS: 73721

== ENCOUNTER 2024-04-18 12:10 | Outpatient (CLI) | payer OTHER, SELFPAY ==
--- NOTE | ~2024-04-18 | US_ITS ---
EXAMINATION: US venous doppler LE RT DATE: 04/18/2024 12:45 INDICATION: Right lower limb localized edema. TECHNIQUE: Grayscale ultrasound images without and with compression and Doppler ultrasound images of the right lower extremity veins were obtained. COMPARISON: None. FINDINGS: The visualized portions of right common femoral vein, profunda (deep) femoral vein, femoral vein, pop liteal vein, peroneal veins, posterior tibial veins, and greater saphenous vein outflow are patent. IMPRESSION: 1. No deep venous thrombosis. Reviewed, dictated and finalized at location A. RINTENDENT COMMISSARY
== END 2024-04-18 12:11 | disposition home or self-care (01) ==
PROVIDERS: Visit Provider Orthopaedic Surgery
DX: R60.0 Localized edema (principal)
CPT/HCPCS: 93971

== ENCOUNTER 2024-07-28 08:42 | Outpatient (CLI) | payer OTHER, SELFPAY ==
--- NOTE | ~2024-07-28 | DEXA_ITS ---
Bone Density Report Name: SINDI DUENAS Age: 54 Sex: Female Ethnicity: White Date of : 1970 Indication: postmenopausal; screening for osteoporosis; height loss; prior fracture; hysterectomy; Referring Provider: MEETA PEREZ Study: Bone densitometry was performed. Exam Date: July 28, 2024 Accession number: [id number] Bone Density: Region BMD T-score Z-score Classification AP Spine(L1-L4) 1.040 -0.1 1.0 Normal Femoral Neck (Left) 0.771 -0.7 0.4 Normal Total Hip (Left) 0.982 0.3 1.0 Normal World Health Organization criteria for BMD impression classify patients as: Normal (T-score at or above -1.0), Osteopenia (T-score between -1.0 and -2.5), or Osteoporosis (T-score at or below -2.5). Clinical Information Provided by Patient: Have had a previous hip or vertebral fracture Has had a low trauma fracture Has used the following medications: Calcium Has the following medical conditions: Hysterectomy Patient maximum height was 65 Menopause Age: 40 No regular weight bearing exercise Does not regularly consume dairy products Drinks caffeinated beverages Onset of menses at age 9 Number of children 1 Impression: The patient has normal bone mass. The patient has risk factors, including: previous fracture. Discussion: INCREASED RISK OF FRACTURE DUE TO HISTORY OF FRACTURE. The patient's previous fracture puts the patient at high risk of a future fracture. In untreated patients, the risk of osteoporotic fracture increases approximately two-fold for each 1.0 SD decrease in T-score. Low bone density is not the only risk factor for fracture; also consider factors such as patient's age, frailty or poor health, risk of falling, risk of injury, previous osteoporotic fracture, family history of osteoporosis, cigarette smoking, low body weight, etc. Not everyone with a low trauma fracture has osteoporosis; osteomalacia and other metabolic bone disorders should also be considered. Patients who have osteoporosis should be evaluated for specific diseases and conditions (secondary causes) that may cause or contribute to bone loss and fracture risk. National Osteoporosis Foundation (NOF) recommends pharmacologic intervention for patients with a prior hip or vertebral fracture regardless of BMD T-score. The patient should follow a healthful lifestyle (good nutrition with adequate calcium and vitamin D, and appropriate weight-bearing exercise). Follow-Up: Consider a repeat BMD and Vertebral Fracture Assessment (VFA) exam in 2 years or sooner if medically necessary, to reassess this patient's status. Reported by: PORTIA on 07/28/2024 9:15:00 AM. Reviewed, dictated and finalized at location A.
--- OUTSIDE RECORDS SUMMARY | 2024-07-28 09:02 | XMS_ITS | Data Portability ---
Author Organization [facility] JILDianasalomón La Address [address] [place] [address] Care Team Providers Care Grants Assistant Name Role Phone MILTON RODRIGUEZ Primary Care Provider Assessment Encounter Date Assessment Date Assessment LastModified by Organization Details LastModified Time 07/17/2024 07/17/2024 Obtain records get DEXA she was working with her 's EAP for her anxiety issues referred to pain management blood work follow up 4 months Not available 07/19/2024 21:26:53 Plan of Treatment Reminders Order Date Submit Date Provider Last Modified By Organization Details Last Modified Time Details Appointments ANY 15 2024 09:30A M Milton Rodriguez MD Not available Not available Not available Lab TSH, ultra-s ensitiv e, serum 2024 025 [email or web address] [facility], [address] [place] [address], [address], [place], [address], 07/17/2024 17:42:03 T3, free, serum or plasma 2024 025 [facility], [address] [place] [address], [address], [place], [address], 07/17/2024 17:42:03 unliste d lab - T4, free 2024 025 [email or web address] [facility], [address] [place] [address], [address], [place], [address], 07/17/2024 17:42:03 CBC w/ auto diff 2024 [email or web address] [facility], [address] [facility], [address], [place], [address], 07/17/2024 17:42:03 CMP, serum or plasma 2024 [facility], [address] [place] [address], [address], [place], [address], 07/17/2024 17:42:03 cobalam in and folate panel, serum 2024 [email or web address] [facility], [address] [place] [address], [address], [place], [address], 07/17/2024 17:42:03 vitamin D, 25-hydr oxy, total, serum 2024 [email or web address] [facility], [address] [place] [address], [address], [place], [address], 07/17/2024 17:42:03 urinaly sis, complet e 2024 [facility], [address] [facility], [address], [place], [address], 07/17/2024 17:42:03 lipid panel, serum 2024 [email or web address] [facility], [address] [place] [address], [address], [place], [address], 07/17/2024 17:42:03 Referral pain managem ent referra l 2024 [email or web address], [address], [place], [address], 07/21/2024 09:10:28 Procedures None recorde d. Surgeries None recorde d. Imaging MAMMO, screeni ng, digital , bilater al 2024 025 [facility], [address], [place], [address], 07/18/2024 09:50:36 bone density 2024 025 [facility], [address], [place], [address], 07/18/2024 15:05:17 Medication Orders None recorde d. Patient TargetsNo targets recorded. Patient Instructions Encounter Date Encounter Id Patient Instructions Last Modified By Organization Details Last Modified Time 07/17/2024 [id number] A healthy lifestyle: care instructions [email or web address] Not available 07/17/2024 16:10:55 Reason for Referral Pain Management Referral for Low back pain Referring Physician: Milotn Rodriguez, Internal Medicine, Encounter Date: 07/17/2024 Problems Name Problem SNOMED Code Status Onset Date Resolution Date Notes Provider Name and Address Organization Details Recorded Time Fatigue 33759290 Active 2024 Eros Villarreal MA null, [place] - [facility] 16:08:54 Obesity 069752374 Active 2024 Eros Villarreal [place], [place] [facility] 16:08:55 Body mass index 30+ - obesity 586432396 Active 2024 Eros Villarreal [place], [place] [facility] 16:08:55 Screening for cardiovascular system disease Active 2024 Eros Villarreal [place], [place] [facility] 16:08:59 Low back pain 136587843 Active 2024 Eros Villarreal [place] null, [place] [facility] 16:11:36 Obstructive sleep apnea syndrome 28685952 Active 2024 Milton Rodriguez MD Attn: Shadia gandara,[address] [facility], [place], [address] [facility] [place] [facility] 21:26:11 Problem Notes None recorded. Procedures Surgical History Date Name Laterality Status Provider Name and Address Organization Details Recorded Time 04/02/19 25 total replacement of hip completed Hortencia Kuhn [place] [facility] 07/17/2024 15:29:11 05/03/19 11 total hysterectomy completed YOLI Thakur [facility] 07/17/2024 15:25:09 05/03/19 02 procedure on foot completed Hortencia Kuhn MA [place] [facility] 07/17/2024 15:27:57 05/03/19 02 procedure on foot completed Hortencia Kuhn [place] [facility] 07/17/2024 15:28:26 04/02/18 84 appendectomy completed Hortencia Kuhn MA [facility] 07/17/2024 15:28:44 Imaging Results None recorded. Procedure Notes None recorded. Medical Equipment None Reported. Allergies Allergen ID Allergen Name Allergen Category Reaction Reaction Severity Criticality Documentation Date Start Date Code Code System Note Provider Name and Address Organization Details Recorded Time 078679 Product containin g penicilli n (product) medicatio n Not available Not available low 07/17/2024 14976 8001 SNOMED Not Available Not Available Not Available 827406 Substance with sulfonami de structure and antibacte rial mechanism of action (substanc e) medicatio n Not available Not available low 07/17/2024 52117 8003 SNOMED Not Available Not Available Not Available 836005 Celexa medicatio n Not available Not available low 07/17/2024 78302 8 RxNorm Pass out Not Available Not Available Not Available Vitals Date Recorded Body height Body mass index (BMI) Body weight Heart rate Oxygen saturation Oxygen saturation in Arterial blood by Pulse oximetry Systolic blood pressure Diastolic blood pressure Provider Name and Address Organization Details Last Updated DateTime 162.56 cm 30.4 kg/m2 83735.2 1 g 86 /min 98 % 98 % 130 mm[Hg] 70 mm[Hg] Hortencia Kuhn MA [facility] 15:31:09 Social History Question Answer Notes LastModified by Organizat ion Details LastModified Time Tobacco Smoking Status Never Smoker YOLI Thakur [facility] 07/17/2024 15:24:46 Do You Have An Advance Directive? No Information not available 07/17/2024 What Is Your Level Of Alcohol Consumption? Occasional Information not available 07/17/2024 Are You Blind Or Do You Have Difficulty Seeing? Yes Glasses Information not available 07/17/2024 What Is Your Level Of Caffeine Consumption? Moderate Information not available 07/17/2024 In The 14 Days Before Symptom Onset, Have You Had Close Contact With A Laboratory-confir med COVID-19 While That Case Was Ill? No Information not available 07/17/2024 In The 14 Days Before Symptom Onset, Have You Had Close Contact With A Person Who Is Under Investigation For COVID-19 While That Person Was Ill? No Information not available 07/17/2024 Have You Been To An Area Known To Be High Risk For COVID-19? No Information not available 07/17/2024 Are You Currently Employed? No Information not available 07/17/2024 Are You Deaf Or Do You Have Serious Difficulty Hearing? Yes Hearing Aids Information not available 07/17/2024 What Type Of Diet Are You Following? REGULAR Information not available 07/17/2024 Are There Any Guns Present In Your Home? No Information not available 07/17/2024 What Was The Date Of Your Most Recent Tobacco Screening? 07/17/2024 Information not available 07/17/2024 What Is Your Relationship Status? Information not available 07/17/2024 Do You Use Your Seat Belt Or Car Seat Routinely? Yes Information not available 07/17/2024 Do You Have Smoke And Carbon Monoxide Detectors In Your Home? Yes Information not available 07/17/2024 Do You Feel Stressed (tense, Restless, Nervous, Or Anxious, Or Unable To Sleep At Night)? [id number] Information not available 07/17/2024 Do You Use Any Illicit Or Recreational Drugs? No Information not available 07/17/2024 Do You Use Sunscreen Routinely? Yes Information not available 07/17/2024 Has Tobacco Cessation Counseling Been Provided? No Information not available 07/17/2024 Do You Or Have You Ever Used Any Other Forms Of Tobacco Or Nicotine? No Information not available 07/17/2024 Sex: Female Functional Status Question Answer Note LastModified by Organization D etails LastModified Time Are you able to care for yourself? Yes Information n ot available 07/17/2024 What is your exercise level? None Information not available 07/17/2024 Mental Status None recorded. Family History Relationship Description Onset Age of this Age Resolved Age Notes LastModified by Organization Details LastModified Time Maternal Grandfather Nodule of lung mebyma Not available 2024 15:22:37 Paternal Grandfather Nodule of lung mebyma Not available 2024 15:22:37 Maternal Grandmother Nodule of lung mebyma Not available 2024 15:22:37 Mother Systemic lupus erythematosu s mebyma Not available 2024 15:22:52 Mother Diabetes mellitus mebyma Not available 2024 15:23:03 Mother Hypertensive disorder mebyma Not available 2024 15:23:15 Mother Disorder of thyroid gland mebyma Not available 2024 15:23:28 Medical History Condition Response Other Y Gynecological History Statement/Question Response If Post Menopausal, Age at Menopause Obstetrics History GPAL:G 1 P 1 0 0 1 Type Value Full Term 1 Living 1 Total 1 Past Encounters Encounter ID Performer Location Encounter Start Date Encounter Closed Date Diagnosis/Indication Diagnosis SNOMED-CT Code Diagnosis ICD10 Code Diagnosis Note [id number] Milton Rodriguez MD [facility] [place] [address] [place] [address] 07/17/2024 15:08:42 07/17/2024 16:22:31 Body mass index 30+ - obesity 015926972 E66.9 Obesity 766242654 E66.9 Fatigue 87295068 R53.83 Screening for cardiovascular system disease 551011191 Z13.6 Postmenopausal state 764 64639 Z78.0 Screening mammography 24 826014 Z12.31 Low back pain 919467084 M54.50 Obstructiv e sleep apnea syndrome 76088912 G47.33 Health Concerns Section Related Observation LastModified by Organization Detai ls LastModified Time None Recorded Concern Status LastModified by Organization Details LastModified Time None Recorded Advance Directives Directive N: Payers Encounter Date Sequence Insurance Name Policy Number Policy Kelly Covered Member ID Kelly Member ID Guarantor Name 07/17/2024 1 [facility] [id number] Elmer Raman [id number] Beatrice Raman Notes Date Note Type Note Provider Name and Address Organization Details Recorded Time 07/17/2024 text/html 54-year-old who has a history of sleep apnea DJD chronic back pain has seen pain management before would like to go back comes in for establishment of care surgically appendectomy bilateral foot surgery total hysterectomy total knee arthroplasty. Allergies penicillin reaction unknown sulfa reaction unknown Celexa makes her pass out family history mother had lupus diabetes and hypertension and a thyroid issue socially denies smoking drinking vaping currently not employed states she is due for a mammogram had a colonoscopy but does not remember when does not remember her last DEXA Milton Rodriguez MD Attn: Accounting[address] [place], [address], [facility] 07/19/2024 21:27:22 OBGyn Episode No OBEpisode recorded.
--- OUTSIDE RECORDS SUMMARY | 2024-07-28 09:02 | XMS_ITS | Referral Summary ---
Author Organization [facility] Address [address] [place] [address] Care Team Providers Care Grocery Carrier Name Role Phone Unknown, Notinfile Primary Care Provider Unavail able Carlos Eduardo Lake MD Unavailable [phone] Encounters Date Type Department Care Team Description 05/23/2024 Orders Only [facility] Orthopaedic Surgery [address] [place] [address] Medical Office [facility] [address] [place] [phone] Shane Tanner MD Lumbar pain with radiation down both legs (Primary Dx); Aftercare following right hip joint replacement surgery 05/23/2024 1:39 PM RIPSAW OPERATOR - 05/23/2024 11:59 PM RIPSAW OPERATOR Hospital Encounter [facility] [address] [place] [address] [address] [place] [phone] Orthopedic aftercare Discharge Disposition: Discharge to home or self care 05/23/2024 2:45 PM RIPSAW OPERATOR Office Visit [facility] Orthopaedic Surgery [address] [place] [address] Medical Office [place] [address] [address] [place] [phone] Shane Tanner MD Orthopedic aftercare (Primary Dx) from Last 3 Months Allergies Active Allergy Reactions Criticality Noted Date Comments Acetaminophen Citalopram Other (See comments) Medium Reaction: OTHER REACTION, Oxycodone Oxycodone-Acetaminophen Itching High Reaction: ITCHING Penicillins Rash Low Reaction: RASH Penicillins Itching Low 04/24/2024 Sulfa Itching Low 04/24/2024 Sulfanilamide Rash Low Reaction: RASH Medications pregabalin (LYRICA) 75 mg capsuleIndications :Postoperative Acute Pain Take 1 capsule (75 mg total) by mouth 2 (two) times a day for 14 days 28 capsule 05/12/19 25 Active traMADoL (ULTRAM) 50 mg tabletIndications: Post-operative pain Take 1 tablet (50 mg total) by mouth every 8 (eight) hours as needed for pain 42 tablet 05/12/19 25 Active oxyCODONE (ROXICODONE) 5 mg immediate release tabletIndications: Pain Take 1 tablet (5 mg total) by mouth every 4 (four) hours as needed for pain (breakthrough) 30 tablet 05/12/19 25 Active CALCIUM CARBONATE ORAL Take 1,200 mg by mouth daily Active methocarbamoL (ROBAXIN) 750 mg tablet Take 1 tablet (750 mg total) by mouth 2 (two) times a day as needed for muscle spasms Active senna-docusate (PERICOLACE) 8.6-50 mgIndications:cons tipation Take 2 tablets by mouth 2 (two) times a day 80 tablet 04/25/19 25 Active acetaminophen 500 mg capsuleIndications :Pain Take 2 capsules (1,000 mg total) by mouth every 8 (eight) hours 90 tablet 04/25/19 25 Active aspirin 81 mg enteric coated tabletIndications: Deep Vein Thrombosis Prevention Take 1 tablet (81 mg total) by mouth 2 (two) times a day 60 tablet 04/25/19 25 Active Additional Information Patient not taking.Reported on 05/23/2024 ondansetron ODT (ZOFRAN-ODT) 4 mg disintegrating tabletIndications: Prevention of Post-Operative Nausea and Vomiting Take 1 tablet (4 mg total) by mouth every 8 (eight) hours as needed for nausea or vomiting 10 tablet 04/25/19 25 Active Active Problems Problem Noted Date Diagnosed Date Aspiration pneumonitis 04/24/2024 Assessment & Plan (04/25/2024 8:49 AM RIPSAW OPERATOR): Aspiration event perioperatively, reportedly was requiring 6L O2. Now on RA. Denies SOB. No need for antibiotics given quick resolution. Will sign off, please call with questions. Closed fracture of neck of right femur 5 Displaced fracture of right femoral neck 025 Social History Tobacco Use Types Packs/Day Years Used Date Smoking Tobacco: Never Smokeless Tobacco: Never Tobacco Cessation:Counseling Given: Not Answered Alcohol Use Standard Drinks/Week Comments Yes 0 (1 standard drink = 0.6 oz pur e alcohol) AUDIT-C Answer Date Recorded Q1: How often do you have a drink containing alcohol? Never 04/24/2024 Q2: How many drinks containi ng alcohol do you have on a typical day when you are drinking? Patient does not drink Q3: How often do you have si x or more drinks on one occasion? Never 04/24/2024 Personal Safety Answer Date Recorded Have you ever been in or are you currently in a harmful physical or emotional relationship or is someone making you feel afraid or unsafe? Denies 04/24/2024 Comments No Sex and Gender Information Value Date Recorded Sex Assigned at Not on file Legal Sex Female 1:17 AM RIPSAW OPERATOR Gender Identity Not on file Sexual Orientation Not on file Last Filed Vital Signs Vital Sign Reading Time Taken Comments Blood Pressure 135/70 04/25/2024 8:22 AM RIPSAW OPERATOR Pulse 99 04/25/2024 8:22 AM RIPSAW OPERATOR Temperature 36.4 C (97.6 F) 04/25/2024 8:22 AM RIPSAW OPERATOR Respiratory Rate 16 04/25/2024 8:22 AM RIPSAW OPERATOR Oxygen Saturation 100% 04/25/2024 8:22 AM RIPSAW OPERATOR Inhaled Oxygen Concentration - - Weight 81.6 kg (180 lb) 04/24/2024 12:50 PM RIPSAW OPERATOR Height 160 cm (5' 3 ) 04/24/2024 12:50 PM RIPSAW OPERATOR Body Mass Index 31.89 04/24/2024 12:50 PM RIPSAW OPERATOR Plan of Treatment Not on file Medical Devices Implanted Type Area Dental Assisting Instructor Device Identifier Shelf Expiration Date Model / Serial / Lot Stem Femoral Reclaim Mon Rev Lng Stem 15 Ho Implanted:Qty: 1 on 04/24/2024 at [facility] Other - see comments Right: Hip Synthes 05/30/2032 [id number] / / [id number] [employer] Insert Trident 0deg 36mm 723-00-36d - [id number] Implanted:Qty: 1 on 04/24/2024 at [facility] Right: Hip [employer] 12/26/2028 723-00-36D / / [id number] [employer] Shell Acetabular Trident Ii Tritanium D Od48mm Hip 3 Screw Hole Cluster Sterile 702-04-48d - [id number] Implanted:Qty: 1 on 04/24/2024 at [facility] Right: Hip [employer] 02/05/2029 702-04-48D / / [id number] [employer] Dall-Miles 2mm Set Hip Cable/Sleeve Orthopedic Vitallium 6704-0-520 - [id number] Implanted:Qty: 1 on 04/24/2024 at [facility] Right: Hip [employer] 02/27/2028 6704-0-520 / / [id number] [employer] Screw Bone Trident Ii L20mm Od6.5mm Low Profile Hexagonal Sterile 9192-1764 - [id number] Implanted:Qty: 1 on 04/24/2024 at [facility] Right: Hip [employer] 02/18/2029 [id number] / / [id number] [employer] Screw Bone Trident Ii L20mm Od6.5mm Low Profile Hexagonal Sterile 3821-7465 - [id number] Implanted:Qty: 1 on 04/24/2024 at [facility] Right: Hip [employer] 02/24/2029 [id number] / / [id number] Head Femoral Articul/Bert Femoral Head 36 Mm 1.5 [id number] - [id number] Implanted:Qty: 1 on 04/24/2024 at [facility] Right: Hip [employer] 09/29/2033 [id number] / / [id number] Procedures Procedure Name Priority Date/Time Associated Diagnosis Comments XR HIP RIGHT W PELVIS 2 OR 3 VIEWS Schedule Routine, Read Routine (OP Routine) 05/23/2024 1:49 PM RIPSAW OPERATOR Orthopedic aftercare DIGITAL MAMMOGRAPHY Routine 10/08/2012 3 :48 PM CDT from Last 3 Months or Most Recently Relevant to Health Maintenance Results * XR Hip Right 2 or 3 Views W Pelvis (05/23/2024 1:49 PM RIPSAW OPERATOR) Anatomical Region Laterality Modality Lower Extremities, Hip, Pelvis Right C omputed Radiography 05/23/2024 2:22 PM RIPSAW OPERATOR Impressions 05/23/2024 2:22 PM RIPSAW OPERATOR 1. Right total hip arthroplasty in unchanged, near-anatomic position. Electronically signed by: Kyle Danielle M.D. Narrative 05/23/2024 2:22 PM RIPSAW OPERATOR EXAMINATION: XR HIP RIGHT 2 OR 3 VIEWS W PELVIS HISTORY: Right femoral neck fracture FINDINGS: 2 view examination of the right hip is compared with a study from 04/24/2024. Soft tissue gas has resolved. Right total hip arthroplasty remains in near-anatomic position. There is cerclage cable fixation of the subtrochanteric femur. There is no new fracture or dislocation. Procedure Note Kyle Danielle MD - 05/23/2024 EXAMINATION: XR HIP RIGHT 2 OR 3 VIEWS W PELVIS HISTORY: Right femoral neck fracture FINDINGS: 2 view examination of the right hip is compared with a study from 04/24/2024. Soft tissue gas has resolved. Right total hip arthroplasty remains in near-anatomic position. There is cerclage cable fixation of the subtrochanteric femur. There is no new fracture or dislocation. IMPRESSION: 1. Right total hip arthroplasty in unchanged, near-anatomic position. Electronically signed by: Kyle Danielle M.D. Shane Tanner MD IMG XR PROCEDURES Final Result * DIGITAL MAMMOGRAPHY (10/08/2012 3:48 PM CDT) Anatomical Region Laterality Modality Breast Mammography 10/08/2012 3:48 PM CDT Narrative 10/09/2012 10:03 AM CDT Acc#: [id number] [facility] 0017 - Screening Mamm BI DATE OF EXAM: Oct 08 2012 3:48PM DIAGNOSIS: SCREEN MAMMOGRAPHY NEC JOINT PAIN-LOWER LEG CLINICAL HISTORY: screening RESULT: \ BILATERAL DIGITAL SCREENING MAMMOGRAM, 10/08/2012 CLINICAL HISTORY: Screening in an asymptomatic patient with no personal or family history of breast cancer. TECHNIQUE: Bilateral full field digital mammography was performed in the CC and O projections. COMPARISON: Made to prior mammograms from July 14, 2009. CAD was utilized. Comparison was also made to diagnostic right breast mammogram from August 11, 2009. FINDINGS: The breasts are fatty. There has been some interval involution of the breast parenchyma as compared to the prior exam. There is no new nodule, mass, area of architectural distortion or suspicious microcalcification. IMPRESSION: CATEGORY 1, NEGATIVE. RECOMMEND YEARLY BILATERAL SCREENING MAMMOGRAM. IMPRESSION OF OVERALL ASSESSMENT CATEGORY 1-NEGATIVE TECHNOLOGIST: LIZABETH DANGELO TECHNOLOGIST MEDICAL IMAGING RE DYE HAND: PW2 TRANSCRIBE DATE/TIME: Oct 08 2012 6:13P RADIOLOGIST: MED SEN M.D. READ ON: Oct 08 2012 4:03P ORDERING DR: CARLOS EDUARDO ROWLEY M.D. THIS DOCUMENT HAS BEEN ELECTRONICALLY SIGNED BY: MED SEN M.D. ON: Oct 09 2012 10:03A Procedure Note Provider, MD Janeen - 07/22/2016 Acc#: [id number] [facility] 0017 - Screening Mamm BI DATE OF EXAM: Oct 08 2012 3:48PM DIAGNOSIS: SCREEN MAMMOGRAPHY NEC JOINT PAIN-LOWER LEG CLINICAL HISTORY: screening RESULT: \ BILATERAL DIGITAL SCREENING MAMMOGRAM, 10/08/2012 CLINICAL HISTORY: Screening in an asymptomatic patient with no personal or family history of breast cancer. TECHNIQUE: Bilateral full field digital mammography was performed in the CC and MLO projections. COMPARISON: Made to prior mammograms from July 14, 2009. CAD was utilized. Comparison was also made to diagnostic right breast mammogram from August 11, 2009. FINDINGS: The breasts are fatty. There has been some interval involution of the breast parenchyma as compared to the prior exam. There is no new nodule, mass, area of architectural distortion or suspicious microcalcification. IMPRESSION: CATEGORY 1, NEGATIVE. RECOMMEND YEARLY BILATERAL SCREENING MAMMOGRAM. IMPRESSION OF OVERALL ASSESSMENT CATEGORY 1-NEGATIVE TECHNOLOGIST: LIZABETH DANGELO TECHNOLOGIST MEDICAL IMAGING RE DYE HAND: PW2 TRANSCRIBE DATE/TIME: Oct 08 2012 6:13P RADIOLOGIST: MED SEN M.D. READ ON: Oct 08 2012 4:03P ORDERING DR: CARLOS EDUARDO ROWLEY M.D. THIS DOCUMENT HAS BEEN ELECTRONICALLY SIGNED BY: MED SEN M.D. ON: Oct 09 2012 10:03A Historical Provider MD KO MAMMO PROCEDURES Vero l Result from Last 3 Months or Most Recently Relevant to Health Maintenance Insurance Advance Directives For more information, please contact: [phone] * Full Code (Latest Code Status on File) Date Activated Date Inactivated Comments 04/24/2024 6:30 PM 04/25/2024 4:44 PM * Full Code Date Activated Date Inactivated Comments 04/23/2024 11:35 AM 04/24/2024 6:30 PM Care Teams Grocery Carrier Relationship Specialty Start Date End Date Unknown, Notinfile PCP - General 04/25/24 [place] [address] [facility] [place] [address] 04/15/24
--- OUTSIDE RECORDS SUMMARY | 2024-07-28 09:02 | XMS_ITS | Clinical Summary ---
Author Organization [facility] Address [address] [place] [address] Care Team Providers Care Hydrological Technical Officer Name Role Phone Unavailable Primary Care Provider Unavailabl e Source Comments [facility],non-owned Affiliates and Associated Physician Practices is amultiple site organization consisting of ambulatory clinics and hospital sitesin [place], [place], [place] and [place]. This disclosure is being madepursuant to the Care Everywhere program and may not contain all information available regarding this patient. Last updated 17.[facility] Allergies Active Allergy Reactions Criticality Noted Date Comments Citalopram Dizziness 07/15/2020 Penicillins Rash Medium 07/15/2020 Reaction: RASH Sulfanilamide Rash Medium 07/15/2020 Reaction: RASH Medications * Be aware that medications may not be up to date on this document. Alwaysverify current medications with the patient. No known medications Active Problems No known active problems Family History Medical History Relation Name Comments Diabetes - Type 2 Mother Hypertension Mother Relation Name Status Comments Brother Alive Father Alive Mother Alive Social History Tobacco Use Types Packs/Day Years Used Date Smoking Tobacco: Every Day Cigarettes 0.5 30 Smokeless Tobacco: Never Alcohol Use Standard Drinks/Week Comments Yes 2 (1 standard drink = 0.6 oz pur e alcohol) 2 a day Comments Unknown Sex and Gender Information Value Date Recorded Sex Assigned at Not on file Legal Sex Female 4:56 AM BATTER DEPOSITOR Gender Identity Not on file Sexual Orientation Not on file Last Filed Vital Signs Vital Sign Reading Time Taken Comments Blood Pressure - - Pulse - - Temperature - - Respiratory Rate - - Oxygen Saturation - - Inhaled Oxygen Concentration - - Weight 86.2 kg (190 lb) 07/15/2020 10:36 AM CDT Height 160 cm (5' 3 ) 07/15/2020 10:36 AM CDT Body Mass Index 33.66 07/15/2020 10:36 AM CDT Plan of Treatment Health Maintenance Due Date Last Done Comments COLOGUARD (AGES 45-75) - COL ON CA SCREENING 1969 COLON MONITORING 1969 COLONOSCOPY - COLON CA SCREENING 1969 CT COLONOGRAPHY - COLON CA SCREENING 1969 Colorectal Cancer Screening 1969 FIT - COLON CA SCREENING 1969 FLEX SIG - COLON CA SCREENING 1969 LIPID TESTING 1969 MAMMOGRAM 1969 HIV SCREENING 1984 HEPATITIS C SCREENING 06/13/1987 DTAP/TDAP/TD VACCINES (1 - Tdap) 1988 HEPATITIS B VACCINE (1 of 3 - 19+ 3-dose series) 1988 PNEUMOCOCCAL VACCINE 50+ (1 of 1 - PCV) 06/18/2019 ZOSTER VACCINE (1 of 2) 06/18/2019 SCREENING FOR DIABETES 07/15/2020 COVID-19 VACCINE (1 - 2023-2 5 season) 2023 DEPRESSION SCREENING 04/02/2024 INFLUENZA VACCINE (Season Ended) 2024 HIB VACCINE Aged Out No longer eligi ble based on patient's age to complete this topic HPV VACCINE Aged Out No longer eligi ble based on patient's age to complete this topic MENINGOCOCCAL (Group B) VACC INE SHARED DECISION-MAKING Aged Out No longer eligibl e based on patient's age to complete this topic MENINGOCOCCAL GROUPS A/C/Y/W VACCINE Aged Out No longer eligible b ased on patient's age to complete this topic [id number] [place] [address] [place] [address]
--- OUTSIDE RECORDS SUMMARY | 2024-07-28 09:02 | XMS_ITS | Clinical Summary ---
Author Organization [facility] Address [address] [place] [address] Care Team Providers Care Coin Purse Framer Name Role Phone Unknown, Notinfile Primary Care Provider Unavail able Carlos Eduardo Lake MD Unavailable [phone] Allergies Active Allergy Reactions Criticality Noted Date [...] (two) times a day 80 tablet 04/25/19 Active acetaminophen 500 mg capsuleIndications :Pain Take 2 capsules (1,000 mg total) by mouth every 8 (eight) hours 90 tablet 04/25/19 Active aspirin 81 mg enteric coated tabletIndications: Deep Vein Thrombosis Prevention Take 1 tablet (81 mg total) by mouth 2 (two) times a day 60 tablet 04/25/19 Active Additional Information Patient not taking.Reported on 05/23/2024 ondansetron ODT (ZOFRAN-ODT) 4 mg disintegrating tabletIndications: Prevention of Post-Operative Nausea and Vomiting Take 1 tablet (4 mg total) by mouth every 8 (eight) hours as needed for nausea or vomiting 10 tablet 04/25/19 Active Active Problems Problem Noted Date Diagnosed Date Aspiration pneumonitis 04/24/2024 Assessment & Plan (04/25/2024 8:49 AM SUGAR REFINER): Aspiration event perioperatively, reportedly was requiring 6L O2. Now on RA. Denies SOB. No need for antibiotics given quick resolution. Will sign off, please call with questions. Closed fracture of neck of right femur Displaced fracture of right femoral neck 025 Encounters Date Type Department Care Team Description 05/23/2024 2:45 PM SUGAR REFINER Office Visit [facility] Orthopaedic Surgery [address] [place] [address] Office [facility] [address] [place] [address] Shane Tanner MD Orthopedic aftercare (Primary Dx) 05/23/2024 1:39 PM SUGAR REFINER - 05/23/2024 11:59 PM SUGAR REFINER Hospital Encounter [facility] Radiology [address] [place] [address] [address] [place] [phone] Orthopedic aftercare Discharge Disposition: Discharge to home or self care 05/23/2024 Orders Only [facility] Orthopaedic Surgery [address] [place] [address] Office [address] [place] [address] Shane Tanner MD Lumbar pain with radiation down both legs (Primary Dx); Aftercare following right hip joint replacement surgery from Last 3 Months Medical History Medical History Date Comments Hx Other Medical Headache, migra ine Family History Medical History Relation Name Comments Cancer Maternal Grandmother Cancer; Cancer Paternal Grandfather Cancer; Relation Name Status Comments Maternal Grandmother Paternal Grandfather Social History Tobacco Use Types Packs/Day Years [...] on file Legal Sex Female 1:17 AM SUGAR REFINER Gender Identity Not on file Sexual Orientation Not on file Obstetrics History Last Filed Vital Signs Vital Sign Reading Time Taken Comments Blood Pressure 135/70 04/25/2024 8:22 AM SUGAR REFINER Pulse 99 04/25/2024 8:22 AM SUGAR REFINER Temperature 36.4 C (97.6 F) 04/25/2024 8:22 AM SUGAR REFINER Respiratory Rate 16 04/25/2024 8:22 AM SUGAR REFINER Oxygen Saturation 100% 04/25/2024 8:22 AM SUGAR REFINER Inhaled Oxygen Concentration - - Weight 81.6 kg (180 lb) 04/24/2024 12:50 PM SUGAR REFINER Height 160 cm (5' 3 ) 04/24/2024 12:50 PM SUGAR REFINER Body Mass Index 31.89 04/24/2024 12:50 PM SUGAR REFINER Plan of Treatment Health Maintenance Due Date Last Done Comments Colon Cancer Screening-Colonoscopy 1969 Depression Screening 1969 Hepatitis C Screening 1969 DTaP/Tdap/Td Vaccine (1 - Tdap) 1980 Hepatitis B Screening 06/18/1987 Regular Well Visit/Exam 18-64 06/18/1987 Breast Cancer Screening-Mammogram 10/08/2013 013 Zoster Vaccine (1 of 2) 06/18/2019 Influenza Vaccine (Season Ended) 2024 Pneumococcal vaccine <65 Aged Out No longer eligible based on patient's age to complete this topic Medical Devices Implanted Type Area Diesel Bus Mechanic Device Identifier Shelf Expiration Date Model / Serial / Lot Stem Femoral Reclaim Mon Rev Lng Stem 15 Ho Implanted:Qty: 1 on 04/24/2024 at [facility] Other - see comments Right: Hip [employer]ynthes 05/30/2032 [id number] / / [id number] [employer] Insert Trident 0deg 36mm 723-00-36d - [id number] Implanted:Qty: 1 on 04/24/2024 at [facility] Right: Hip [employer] 12/26/2028 723-00-36D / / [id number] [employer] Shell Acetabular Trident Ii Tritanium D Od48mm Hip 3 Screw Hole Cluster Sterile 702-04-48d - [id number] Implanted:Qty: 1 on 04/24/2024 at [facility] Right: Hip [employer] 02/05/2029 702-04-48D / / [id number] [employer] Dall-Miles 2mm Set Hip Cable/Sleeve Orthopedic Vitallium 6704-0-520 - [id number] Implanted:Qty: 1 on 04/24/2024 at [facility] Right: Hip [employer] 02/27/2028 6704-0-520 / / [id number] [employer] Screw Bone Trident Ii L20mm Od6.5mm Low Profile Hexagonal Sterile 0036-8911 - [id number] Implanted:Qty: 1 on 04/24/2024 at [facility] Right: Hip [employer] 02/18/2029 3371-3778 / / [id number] [employer] Screw Bone Trident Ii L20mm Od6.5mm Low Profile Hexagonal Sterile 6583-2157 - [id number] Implanted:Qty: 1 on 04/24/2024 at [facility] Right: Hip [employer] 02/24/2029 3686-4704 / / [id number] Head Femoral Articul/Bert Femoral Head 36 Mm 1.5 [id number] - [id number] Implanted:Qty: 1 on 04/24/2024 at [facility] Right: Hip [employer] 09/29/2033 [id number] / / [id number] Procedures Procedure Name Priority Date/Time Associated Diagnosis Comments XR HIP RIGHT W PELVIS 2 OR 3 VIEWS Schedule Routine, Read Routine (OP Routine) 05/23/2024 1:49 PM SUGAR REFINER Orthopedic aftercare DIGITAL MAMMOGRAPHY Routine 10/08/2012 3 :48 PM CDT from Last 3 Months or Most Recently Relevant to Health Maintenance Results * XR Hip Right 2 or 3 Views W Pelvis (05/23/2024 1:49 PM SUGAR REFINER) Anatomical Region Laterality Modality Lower Extremities, Hip, Pelvis Right C omputed Radiography 05/23/2024 2:22 PM SUGAR REFINER Impressions 05/23/2024 2:22 PM SUGAR REFINER 1. Right total hip arthroplasty in unchanged, near-anatomic position. Electronically signed by: Kyle Danielle M.D. Narrative 05/23/2024 2:22 PM SUGAR REFINER EXAMINATION: XR HIP RIGHT 2 OR 3 [...] CDT Narrative 10/09/2012 10:03 AM CDT Acc#: [id number] [facility] 0017 - Screening Mamm BI DATE [...] OF OVERALL ASSESSMENT CATEGORY 1-NEGATIVE TECHNOLOGIST: LIZABETH DANGELO, TECHNOLOGIST MEDICAL IMAGING DEPUTY MANAGER: PW2 TRANSCRIBE DATE/TIME: Oct 08 2012 6:13P RADIOLOGIST: MED SEN M.D. READ ON: Oct 08 2012 4:03P ORDERING DR: CARLOS EDUARDO ROWLEY M.D. THIS DOCUMENT HAS BEEN ELECTRONICALLY SIGNED BY: MED SEN M.D. ON: Oct 09 2012 10:03A Procedure Note Provider, MD Janeen - 07/22/2016 Acc#: [id number] [facility] 0017 - Screening Mamm BI DATE [...] OF OVERALL ASSESSMENT CATEGORY 1-NEGATIVE TECHNOLOGIST: LIZABETH DANGELO, TECHNOLOGIST MEDICAL IMAGING DEPUTY MANAGER: PWCookie TRANSCRIBE DATE/TIME: Oct 08 2012 6:13P RADIOLOGIST: MED SEN M.D. READ ON: Oct 08 2012 4:03P ORDERING DR: CARLOS EDUARDO ROWLEY M.D. THIS DOCUMENT HAS BEEN ELECTRONICALLY SIGNED BY: MED SEN M.D. ON: Oct 09 2012 10:03A [facility] Provider MD KO MAMMO PROCEDURES Vero l Result from Last 3 Months or Most Recently Relevant to Health Maintenance Insurance [email or web address] CIG Advance Directives For more information, please contact: [phone] * Full Code (Latest Code Status on File) Date Activated Date Inactivated Comments 04/24/2024 6:30 PM 04/25/2024 4:44 PM * Full Code Date Activated Date Inactivated Comments 04/23/2024 11:35 AM 04/24/2024 6:30 PM Care Teams Coin Purse Framer Relationship Specialty Start Date End Date Unknown, Notinfile PCP - General 04/25/24 [place] [address] [facility] [place] [address] 04/15/24
--- OUTSIDE RECORDS SUMMARY | 2024-07-28 09:02 | XMS_ITS | Encounter Summary ---
Author Organization [facility] Address [address] [place] [address] Care Team Providers Care Stabber Name Role Phone Unavailable Primary Care Provider Unavailabl e Encounter Details Date Type Department Care Team (Late st Contact Info) Description 07/29/2020 [facility] Outpatient Visit EXTERNAL NON-SS DEPT Unknown, Provider Social History Tobacco Use Types Packs/Day Years Used Date Smoking Tobacco: Every Day Cigarettes 0.5 30 Smokeless Tobacco: Never Alcohol Use Standard Drinks/Week Comments Yes 2 (1 standard drink = 0.6 oz pur e alcohol) 2 a day Comments Unknown Sex and Gender Information Value Date Recorded Sex Assigned at Not on file Legal Sex Female 4:56 AM MINI SHIFTER Gender Identity Not on file Sexual Orientation Not on file documented as of this encounter Plan of Treatment Not on file documented as of this encounter Visit Diagnoses Not on filedocumented in this encounter
== END 2024-07-28 08:43 | disposition home or self-care (01) ==
LOC: CHSIMG 08:45
PROVIDERS: PCP Internal Medicine; Visit Provider Internal Medicine
DX: Z78.0 Asymptomatic menopausal state (principal)
CPT/HCPCS: 77080

== ENCOUNTER 2024-08-28 09:49 | Outpatient (CLI) | payer OTHER, SELFPAY ==
--- NOTE | ~2024-08-28 | MR_ITS ---
MRI of the lumbar spine Clinical History: Radiculopathy Technique: Axial T2-weighted images, and sagittal T1-weighted, T2-weighted, and T2 fat-sat images wer e acquired. Findings: There are bilateral L5 pars intra-articularis defects, with 8 mm anterolisthesis of L5 over S1. No acute fracture seen. No suspicious bone marrow signal abnormality seen. At L1-L2, there is moderate to advanced degenerative disc narrowing. No significant disc bulge or her niation. There is mild facet arthropathy. No central canal stenosis or neural foraminal narrowing. At L2-L3 and L3-L4, there is no disc bulge or herniation. There is mild facet joint degenerative leyva ge. No spinal canal stenosis or neural foraminal narrowing at these levels. At L4-L5, there is advanced degenerative disc narrowing. There is diffuse disc bulge with mild facet arthropathy. No central canal stenosis. There is moderate left neural foraminal narrowing and advance d right neural foraminal narrowing. At L5-S1, there is severe degenerative disc narrowing. There is advanced facet arthropathy. No centra l canal stenosis. There is moderate to advanced left neural foraminal narrowing, and mild right neura l foraminal narrowing. Paravertebral soft tissues are unremarkable. Impression: Bilateral L5 pars interarticularis defects, with 8 mm anterolisthesis of L5 over S1. Moderate degenerative spondylosis otherwise, as detailed above, with multilevel neural foraminal narr owing. Reviewed, dictated and finalized at [facility]. Impression: Bilateral L5 pars interarticularis defects, with 8 mm anterolisthesis of L5 ove r S1. Moderate degenerative spondylosis otherwise, as detailed above, with multilevel neural foraminal narrowing.
== END 2024-08-28 09:50 | disposition home or self-care (01) ==
PROVIDERS: PCP Internal Medicine; Visit Provider Nurse Practitioner Family
DX: M47.26 Other spondylosis with radiculopathy, lumbar region (principal)
CPT/HCPCS: 72148

== ENCOUNTER 2024-12-24 15:18 | Outpatient (CLI) | payer OTHER, SELFPAY ==
--- NOTE | ~2024-12-24 | MM_ITS ---
EXAMINATION: MM screening chasity BI w hamzah HISTORY: Screening TECHNIQUE: Craniocaudal and mediolateral oblique 3-D tomosynthesis images were obtained and synthetic 2-D images were generated. CAD analysis was submitted and interpreted. COMPARISON: 08/23/2023 BREAST PARENCHYMAL COMPOSITION: Not Dense: The breasts are almost entirely fatty. FINDINGS: There is no evidence of suspicious mass, calcification, or architectural distortion to suggest malignancy in either breast. [There has been no significant interval change. IMPRESSION: 1. No mammographic evidence of malignancy. Recommend routine screening mammography in one year. BI-RADS Category 1: Negative Reviewed, dictated, and finalized at Location A. Reviewed, dictated and finalized at location Q. IMPRESSION: 1. No mammographic evidence of malignancy. Recommend routine screening mammogra phy in one year. BI-RADS Category 1: Negative
--- OUTSIDE RECORDS SUMMARY | 2024-12-24 15:23 | XMS_ITS | Clinical Summary ---
Author Organization [facility] Address [address] [place] [address] Care Team Providers Care Installation And Service Technician Name Role Phone Unavailable Primary Care Provider Unavailabl e Source Comments [facility],non-owned Affiliates and Associated Physician Practices is amultiple site organization consisting of ambulatory clinics and hospital sitesin [place], [place], [place] and [place]. This disclosure is being madepursuant to the Care Everywhere program and may not contain all information available regarding this patient. 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 Gender Identity Not on file Sexual Orientation Not on file Last Filed Vital Signs Vital Sign Reading Time Taken Comments Blood Pressure - - Pulse - - Temperature - - Respiratory Rate - - Oxygen Saturation - - Inhaled Oxygen Concentration - - Weight 86.2 kg (190 lb) 07/15/2020 10:36 AM CDT Height 160 cm (5' 3) 07/15/2020 10:36 AM CDT Body Mass Index [...] of 2) 06/18/2019 SCREENING FOR DIABETES 07/15/2020 DEPRESSION SCREENING 04/02/2024 COVID-19 VACCINE (1 - 2023-2 5 season) 2024 INFLUENZA VACCINE (#1) 2024 HIB VACCINE Aged Out No longer [...] patient's age to complete this topic Insurance [id number] [place] Address: [address] [place] [address]
--- OUTSIDE RECORDS SUMMARY | 2024-12-24 15:23 | XMS_ITS | Clinical Summary ---
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 Now on RA. Denies SOB. No need for antibiotics given quick resolution. Will sign off, please call with questions. Closed fracture of neck of right femur 5 Displaced fracture of right femoral neck 025 Medical History Medical History Date Comments Hx [...] on file Legal Sex Female 1:17 AM DECORATING KILN OPERATOR Gender Identity Not on file Sexual Orientation Not on file Obstetrics History Last Filed Vital Signs Vital Sign Reading Time Taken Comments Blood Pressure 135/70 04/25/2024 8:22 AM DECORATING KILN OPERATOR Pulse 99 04/25/2024 8:22 AM DECORATING KILN OPERATOR Temperature 36.4 C (97.6 F) 04/25/2024 8:22 AM DECORATING KILN OPERATOR Respiratory Rate 16 04/25/2024 8:22 AM DECORATING KILN OPERATOR Oxygen Saturation 100% 04/25/2024 8:22 AM DECORATING KILN OPERATOR Inhaled Oxygen Concentration - - Weight 81.6 kg (180 lb) 04/24/2024 12:50 PM DECORATING KILN OPERATOR Height 160 cm (5' 3) 04/24/2024 12:50 PM DECORATING KILN OPERATOR Body Mass Index 31.89 04/24/2024 12:50 PM DECORATING KILN OPERATOR Plan of Treatment Health Maintenance Due Date Last Done Comments Colon Cancer Screening-Colonoscopy 1970 Depression Screening 1970 Hepatitis C Screening 1970 DTaP/Tdap/Td Vaccine (1 - Tdap) 1980 Hepatitis B Screening 06/18/1987 Regular Well Visit/Exam 18-64 06/18/1987 Breast Cancer Screening-Mammogram 10/08/2013 013 Zoster Vaccine (1 of 2) 06/18/2019 Influenza Vaccine (#1) 2024 Pneumococcal vaccine <65 Aged Out No longer eligible based on patient's age to complete this topic Medical Devices Implanted Type Area Patient Service Representative Device Identifier Shelf Expiration Date Model / Serial / Lot Stem Femoral Reclaim Mon Rev Lng Stem 15 Ho Implanted:Qty: 1 on 04/24/2024 at [facility] Other - see comments Right: Hip Synthes 05/30/2032 [id number] / / [id number] [employer] Insert Trident 0deg 36mm 723-00-36d - [id number] Implanted:Qty: 1 on 04/24/2024 at [facility] Right: Hip [employer] 12/26/2028 723-00-36D / / [id number] [employer] Shell Acetabular Trident Ii Tritanium D Od48mm Hip 3 Screw Hole Cluster Sterile 702-04-48d - [id number] Implanted:Qty: 1 on 04/24/2024 at [facility] Right: Hip [employer] 02/05/2029 702-04-48D / / [id number] [employer] Dall-Miles 2mm Set Hip Cable/Sleeve Orthopedic Vitallium 6704-0-520 - [id number] Implanted:Qty: 1 on 04/24/2024 at [facility] Right: Hip [employer] 02/27/2028 6704-0-520 / / [id number] [employer] Screw Bone Trident Ii L20mm Od6.5mm Low Profile Hexagonal Sterile 9356-7223 - [id number] Implanted:Qty: 1 on 04/24/2024 at [facility] Right: Hip [employer] 02/18/2029 [id number] / / [id number] [employer] Screw Bone Trident Ii L20mm Od6.5mm Low Profile Hexagonal Sterile 0260-7940 - [id number] Implanted:Qty: 1 on 04/24/2024 at [facility] Right: Hip [employer] 02/24/2029 [id number] / / [id number] Head Femoral Articul/Bert Femoral Head 36 Mm 1.5 [id number] - [id number] Implanted:Qty: 1 on 04/24/2024 at [facility] Right: Hip [employer] 09/29/2033 [id number] / / [id number] Procedures Procedure Name Priority Date/Time Associated Diagnosis Comments DIGITAL MAMMOGRAPHY Routine 10/08/2012 3 :48 PM CDT from Last 3 Months or Most Recently Relevant to Health Maintenance Results * DIGITAL MAMMOGRAPHY (10/08/2012 3:48 PM CDT) Anatomical Region Laterality Modality Breast Mammography 10/08/2012 3:48 PM CDT Narrative 10/09/2012 10:03 AM CDT Acc#: [id number] HALIMA 0017 - Screening Mamm BI DATE [...] 1-NEGATIVE TECHNOLOGIST: LIZABETH DANGELO TECHNOLOGIST MEDICAL IMAGING CVOR NURSE: PW2 TRANSCRIBE DATE/TIME: Oct 08 2012 6:13P RADIOLOGIST: MED SEN M.D. READ ON: Oct 08 2012 4:03P ORDERING DR: CARLOS EDUARDO [place] M.D. THIS DOCUMENT HAS BEEN ELECTRONICALLY SIGNED BY: MED SEN M.D. ON: Oct 09 2012 10:03A Procedure Note Provider, MD Janeen - 07/22/2016 Acc#: [id number] HALIMA 0017 - Screening Mamm BI DATE [...] 1-NEGATIVE TECHNOLOGIST: LIZABETH DANGELO TECHNOLOGIST MEDICAL IMAGING CVOR NURSE: PW2 TRANSCRIBE DATE/TIME: Oct 08 2012 6:13P RADIOLOGIST: MED SEN M.D. READ ON: Oct 08 2012 4:03P ORDERING DR: CARLOS EDUARDO [place] M.D. THIS DOCUMENT HAS BEEN ELECTRONICALLY SIGNED BY: MED SEN M.D. ON: Oct 09 2012 10:03A us Historical Provider MD KO MAMMO PROCEDURES Vero l Result from Last 3 Months or Most Recently Relevant to Health Maintenance Insurance [employer] [facility] Advance Directives For more information, please contact: [phone] * Full Code (Latest Code Status on File) Date Activated Date Inactivated Comments 04/24/2024 6:30 PM 04/25/2024 4:44 PM * Full Code Date Activated Date Inactivated Comments 04/23/2024 11:35 AM 04/24/2024 6:30 PM Care Teams Supervisor General Relationship Specialty Start Date End Date Unknown, Notinfile PCP - General 04/25/24 [place] [id number] [facility] [address] [place] [address] 04/15/24
--- OUTSIDE RECORDS SUMMARY | 2024-12-24 15:23 | XMS_ITS | Encounter Summary ---
Author Organization [facility] Address [address] 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
== END 2024-12-24 15:19 | disposition home or self-care (01) ==
LOC: ANHFOHIMG 15:20
PROVIDERS: PCP Internal Medicine; Visit Provider Internal Medicine
DX: Z12.31 Encounter for screening mammogram for malignant neoplasm of breast (principal)
CPT/HCPCS: 77063; 77067

== ENCOUNTER 2025-03-10 08:28 | Outpatient (CLI) | payer OTHER, SELFPAY ==
--- NOTE | 2025-03-10 | ECHO_ITS ---
Patient Info Name: Beatrice Raman Age: 54 years : 1970 Gender: Female Ht: 62 in Wt: 187 lbs BSA: 1.96 m2 HR: 79 bpm BP: 147 / 86 mmHg Heart Rhythm: Sinus Rhythm Technical Quality: Good Exam Date: 03/10/2025 9:02 AM Patient Status: O Admit Date: 03/10/2025 Exam Type: CA echo doppler color flow Complete two-dimensional, color flow and Doppler transthoracic echocardiogram is performed. Material Scheduler: Shaye Cabrera Attending Provider: Milton Rodriguez Summary 1. Complete two-dimensional, color flow and Doppler transthoracic echocardiogram is performed. 2. Left ventricular chamber dimension is mildly enlarged. 3. Left ventricular systolic function is normal, estimated at 55-60. 4. There is no increased left ventricular wall thickness. 5. The left ventricular diastolic function is grade I diastolic dysfunction. 6. Left atrial chamber dimension is mildly enlarged. 7. There is mild aortic valve regurgitation. 8. There is mild tricuspid valve regurgitation. 9. There is mild mitral valve regurgitation. Left Ventricle Left ventricular chamber dimension is mildly enlarged. Left ventricular systolic function is normal, estimated at 55-60. There is no increased left ventricular wall thickness. The left ventricular diastolic function is grade I diastolic dysfunction. Right Ventricle Right ventricular chamber dimension is normal. Right ventricular systolic function is normal. Left Atria Left atrial chamber dimension is mildly enlarged. Right Atria Right atrial chamber dimension is normal. Atrial Septum Intact interatrial septum visualized by color flow imaging. Aortic Valve The aortic valve is trileaflet. There is mild aortic valve sclerosis. There is no aortic valve stenosis. There is mild aortic valve regurgitation. Pulmonic Valve The pulmonic valve is normal. There is no pulmonic valve stenosis. There is trace pulmonic regurgitation. Mitral Valve The mitral valve has normal leaflets. There is no mitral valve stenosis. There is mild mitral valve regurgitation. Tricuspid Valve The tricuspid valve leaflets are normal. There is no significant tricuspid valve stenosis. There is mild tricuspid valve regurgitation. No pulmonary hypertension, estimated pulmonary arterial systolic pressure is 33 mmHg. Pericardium/Pleural The pericardium appears normal. There is no pericardial effusion. Inferior Vena Cava Normal inferior vena cava with >50% collapse upon inspiration consistent with normal right atrial pressure, 8 mmHg. Aorta The aortic root size at the sinus of Valsalva is normal. Left Ventricular Outflow Tract Name Value Normal LVOT 2D LVOT Diameter 1.9 cm LVOT Doppler LVOT Peak Velocity 126 cm/s LVOT Peak Gradient 6 mmHg LVOT Mean Gradient 4 mmHg LVOT VTI 27 cm LVOT VTI/AV VTI Ratio 0.9 LVOT Stroke Volume 77 ml LVOT CO 6.0 l/min LVOT CI 3.0 l/min/m2 Pulmonic Valve Name Value Normal RVOT Doppler RVOT Peak Velocity 120 cm/s RVOT Peak Gradient 6 mmHg PV Doppler PV Peak Velocity 141 cm/s PV Peak Gradient 8 mmHg Mitral Valve Name Value Normal MV Diastolic Function MV E Peak Velocity 71 cm/s MV A Peak Velocity 101 cm/s MV E/A 0.7 MV Decel Time (PW) 113 ms Tricuspid Valve Name Value Normal TV Regurgitation Doppler TR Peak Velocity 252 cm/s TR Peak Gradient 25 mmHg Estimated PAP/RSVP RA Pressure 8 mmHg <=5 PA Systolic Pressure 33 mmHg <36 RV Systolic Pressure 33 mmHg <36 Aorta Name Value Normal Ascending Aorta Ao Root Diameter (MM) 2.5 cm Ao Root Diam Index (MM) 1.3 cm/m2 Aortic Valve Name Value Normal AV Doppler AV Peak Velocity 147 cm/s AV Peak Gradient 9 mmHg AV Mean Gradient 5 mmHg AV VTI 30 cm AV Area (Cont Eq VTI) 2.6 cm2 >=3.0 AV Area (Cont Eq Rod) 2.5 cm2 AV DI (Rod) 0.85 AV Regurgitation 2D LVOT Area 2.9 cm2 Ventricles Name Value Normal LV Dimensions 2D/MM IVS Diastolic Thickness (2D) 0.9 cm 0.6-1.0 IVS Diastole Thickness (MM) 0.7 cm 0.6-0.9 LVID Diastole (2D) 4.1 cm 3.8-5.2 LVID Diastole (MM) 5.6 cm 3.8-5.2 LVIW Diastolic Thickness (2D) 1.0 cm 0.6-0.9 LVIW Diastolic Thickness (MM) 0.7 cm 0.6-0.9 LVID Systole (2D) 3.0 cm 2.2-3.5 LVID Systole (MM) 3.5 cm 2.2-3.5 LVOT Diameter 1.9 cm LV Mass (2D Cubed) 121.48 g 67.00-162.00 LV Mass Index (2D Cubed) 62 g/m2 43-95 Relative Wall Thickness (2D) 0.50 <=0.42 LV Mass (MM Cubed) 145.95 g 67.00-162.00 LV Mass Index (MM Cubed) 74 g/m2 43-95 Relative Wall Thickness (MM) 0.26 LV Fractional Shortening/Ejection Fraction 2D/MM LV Fractional Shortening (2D) 26 % 27-45 LV Fractional Shortening (MM) 37 % 27-45 LV EF (MM Teichholz) 67 % LV EF (2D Teichholz) 51 % LV Diastolic Volume (4C MOD) 84 ml LV EF (4C MOD) 51 % LV Diastolic Volume (2C MOD) 80 ml LV EF (2C MOD) 58 % LV Diastolic Volume (BP MOD) 83 ml 46-106 LV Diastolic Volume Index (BP MOD) 42 ml/m2 29-61 LV Systolic Volume (BP MOD) 37 ml 14-42 LV Systolic Volume Index (BP MOD) 19 ml/m2 8-24 LV EF (BP MOD) 55 % 54-74 LV Diastolic Length (4C) 8.4 cm LV Systolic Length (4C) 6.8 cm LV Stroke Volume (4C MOD) 43 ml Atria Name Value Normal LA Dimensions LA Dimension (MM) 3.9 cm 2.7-3.8 LA Volume (4C A-L) 48 ml LA Volume (BP A-L) 48 ml RA Dimensions RA Systolic Major Jackhorn Length (4C) 4.5 cm 2.2-2.8 RA Area (4C) 14.0 cm2 <=18.0 Report Signatures
== END 2025-03-10 08:29 | disposition home or self-care (01) ==
LOC: ANHCARD 08:32
PROVIDERS: PCP Internal Medicine; Visit Provider Internal Medicine
DX: I34.0 Nonrheumatic mitral (valve) insufficiency (principal); I35.1 Nonrheumatic aortic (valve) insufficiency; I36.1 Nonrheumatic tricuspid (valve) insufficiency
CPT/HCPCS: 93306